=== PATIENT | male | born 1975 | race Caucasian/White ===

== ENCOUNTER → 2018-09-05 | Outpatient (CLI) | payer OTHER ==
[~2018-09-05] MED LIST: DIATRIZOATE MEGL/DIATRIZOA SOD 30 ML BTL PO ONE; FLAGYL250 MG PO; IOPAMIDOL 370 MG/ML 200 ML INFUS..BTL INJ ONE; LEVAQUIN500 MG PO; LOSARTAN-HCTZ1 EAC1 PO; METOPROLOL SUCC50 MG PO; QUETIAPINE FUM100 MG PO; SODIUM CHLORIDE 0.9% 500ML 500 ML ONE; SODIUM CHLORIDE 0.9% 50ML 50 ML ONE; ULTRACET TABLE1 EACH PO
[2018-09-05 07:51] LABS: CREATININE, SERUM 1.33 mg/dL (0.72-1.25)
--- NOTE | 2018-09-05 09:34 | Diagnostic Imaging Report ---
PROCEDURE: CT ABDOMEN AND PELVIS WITH CONTRAST TECHNIQUE: The abdomen and pelvis were scanned utilizing a multidetector helical scanner from the diaphragm to the lesser trochanter after the IV administration of 100 cc of Isovue 370 and the oral administration of Gastrografin intermixed with water. Coronal and sagittal multiplanar reformations were obtained. Low-dose technique was utilized. DLP: 447.78 mGy-cm COMPARISON: None. INDICATIONS: RIGHT LOWER QUADRANT PAIN FINDINGS: LOWER THORAX: Normal. HEPATOBILIARY: No focal hepatic lesions. No biliary ductal dilatation. There is fatty infiltration of the liver. SPLEEN: No splenomegaly. Small hypodensity within the spleen likely represents a cyst. PANCREAS: No focal masses or ductal dilatation. ADRENALS: No adrenal nodules. KIDNEYS/URETERS: No hydronephrosis, stones, or solid mass lesions. PELVIC ORGANS/BLADDER: Unremarkable. PERITONEUM / RETROPERITONEUM: No free air or fluid. LYMPH NODES: There are small left sided paraortic lymph nodes not appearing pathologic. VESSELS: There are 2 renal arteries on each side. Direct origin of the left gastric artery from the aorta. GI TRACT: There is evidence of GI malrotation with the colon and cecum on the left side of the abdomen. Small bowel loops are on the right side of the abdomen. There are scattered diverticula within the colon. No evidence of diverticulitis. The appendix is normal. BONES AND SOFT TISSUES: Rods and fusion involving L4, L5 and S1. Findings discussed with Niya miranda with Dr. Lynne at the time of interpretation. IMPRESSION: 1. No acute abnormality within the abdomen or pelvis. 2. Evidence of GI malrotation with the colon in the left side of the abdomen and small bowel in the right side of the abdomen. 3. Fatty infiltration of the liver. Emmanuel Poe D.O. Dictated by: Emmanuel Poe D.O. on 09/05/2018 at 9:42 Electronically approved by: Emmanuel Poe D.O. on 09/05/2018 at 9:42
== END ==
LOC: CT 06:50
PROVIDERS: ATTEND Family Medicine
DX: R10.11 Right upper quadrant pain (principal); R10.31 Right lower quadrant pain; R19.4 Change in bowel habit
CPT/HCPCS: 36415; 74177; 82565; 84520; 96360; J7040; Q9663; Q9967

== ENCOUNTER 2018-10-04 19:46 | Inpatient (IN) | payer OTHER ==
[~2018-10-04] VITALS: Ht 170.2 cm; Wt 85.8 kg
--- OUTSIDE RECORDS SUMMARY | 2018-10-04 19:48 | XMS REPORT ---
Author Author [facility] Address Unknown Phone Unavailable Care Team Providers Care Vegetable Loader Name Role Phone MIRIAM LYNNE Unavailable Unavailable Problems This patient has no known problems. Allergies, Adverse Reactions, Alerts This patient has no known allergies or adverse reactions. Medications This patient has no known medications. Results Test Description Test Time Test Comments Text Results Atomic Results Result Comments CT ABDOMEN/PELVIS W 2018-09-05 09:43:00 [facility] [address] [address] Patient Name: MASTER FIGUEROA MR #: [id number] : 1975 Age/Sex: 42/M Req #: [id number] [facility] Physician: Ordered by: MIRIAM LYNNE DO Report #: [id number] Location: CT Room/Bed: Procedure: [id number] CT/CT ABDOMEN/PELVIS W Exam Date: Exam Time: REPORT STATUS: Signed PROCEDURE: CT ABDOMEN AND PELVIS WITH CONTRAST TECHNIQUE: The abdomen and pelvis were scanned utilizing a multidetector helical scanner from the diaphragm to the lesser trochanter after the IV administration of 100 cc of Isovue 370 and the oral administration of Gastrografin intermixed with water. Coronal and sagittal multiplanar reformations were obtained. Low-dose technique was utilized. DLP: 447.78 mGy-cm COMPARISON: None. INDICATIONS: RIGHT LOWER QUADRANT PAIN FINDINGS: LOWER THORAX: Normal. HEPATOBILIARY: No focal hepatic lesions. No biliary ductal dilatation. There is fatty infiltration of the liver. SPLEEN: No splenomegaly. Small hypodensity within the spleen likely represents a cyst. PANCREAS: No focal masses or ductal dilatation. ADRENALS: No adrenal nodules. KIDNEYS/URETERS: No hydronephrosis, stones, or solid mass lesions. PELVIC ORGANS/BLADDER: Unremarkable. PERITONEUM / RETROPERITONEUM: No free air or fluid. LYMPH NODES: There are small left sided paraortic lymph nodes not appearing pathologic. VESSELS: There are 2 renal arteries on each side. Direct origin of the left gastric artery from the aorta. GI TRACT: There is evidence of GI malrotation with the colon and cecum on the left side of the abdomen. Small bowel loops are on the right side of the abdomen. There are scattered diverticula within the colon. No evidence of diverticulitis. T he appendix is normal. BONES AND SOFT TISSUES: Rods and fusion involving L4, L5 and S1. Findings discussed with Niya associated with Dr. Lynne at the time of interpretation. IMPRESSION: 1. No acute abnormality within the abdomen or pelvis. 2. Evidence of GI malrotation with the colon in the left side of the abdomen and small bowel in the right side of the abdomen. 3. Fatty infiltration of the liver. Orlando Poe D.O. Dictated by: Orlando Poe D.O. on 09/05/2018 at 9:42 Electronically approved by: Orlando Poe D.O. on 09/05/2018 at 9:42 Dictated By: ORLANDO POE DO 2 Transcribed By: JESÚS on 09/05/1843 COPY TO: MIRIAM LYNNE DO
[2018-10-04] MEDS ORDERED: SODIUM CHLORIDE 0.9% 1000ML 1,000 ML IV STA (20:05)
[2018-10-04] MEDS ORDERED: HYDROMORPHONE 1MG/1ML INJ IV PRN ×2 (20:15→23:30)
[2018-10-04] MEDS ORDERED: DIATRIZOATE MEGL/DIATRIZOA SOD 30 ML BTL PO ONE ×2 (20:15→20:37)
[2018-10-04] MEDS ORDERED: ONDANSETRON HCL INJ 2 MG/ML VIAL ONE (20:24)
[2018-10-04] MEDS ORDERED: SODIUM CHLORIDE 0.9% 1000ML 1,000 ML ONE (20:24)
[2018-10-04] MEDS: HYDROMORPHONE 2MG/ML 2 MG/ML ML IV PRN (20:29)
[2018-10-04] MEDS ORDERED: ONDANSETRON HCL INJ 2 MG/ML VIAL IV ONE (20:30)
[2018-10-04] MEDS ORDERED: MORPHINE SULFATE INJ 4 MG/ML INJ IV ONE (20:30)
[2018-10-04 20:36] LABS: BASOPHILS # (AUTO) 0.1 (0.0-0.1); BASOPHILS % 0.3 % (0.0-1.0); EOSINOPHILS # (AUTO) 0.1 (0.0-0.4); EOSINOPHILS % 0.8 % (0.0-6.0); HEMATOCRIT 54.1 % (38.2-49.6); HEMOGLOBIN 18.6 g/dL (14.0-18.0); LYMPHOCYTES # (AUTO) 1.9 (1.0-3.2); LYMPHOCYTES % 10.9 % (18.0-39.1); MEAN CORPUSCULAR HGB CONC 34.4 g/dL (31-35); MONOCYTES # (AUTO) 1.5 (0.2-0.8); MONOCYTES % 8.6 % (4.4-11.3); NEUTROPHILS # (AUTO) 13.8 (2.1-6.9); NEUTROPHILS % 78.9 % (38.7-80.0); PLATELET COUNT 276 x10e3/uL (140-360); RED BLOOD COUNT 5.82 x10e6/uL (4.3-5.7); RED CELL DISTRIBUTION WIDTH 13.2 % (11.7-14.4)
[2018-10-04 20:38] LABS: BILIRUBIN,URINE NEGATIVE (NEGATIVE); CLARITY,URINE CLEAR (CLEAR); COLOR,URINE YELLOW (YELLOW); KETONES,URINE NEGATIVE (NEGATIVE); LEUKOCYTE ESTERASE ,URINE NEGATIVE (NEGATIVE); NITRITE,URINE NEGATIVE (NEGATIVE); PROTEIN,URINE DIPSTICK NEGATIVE (NEGATIVE); URINE UROBILINOGEN 0.2 mg/dL (0.2 - 1)
[2018-10-04 20:42] LABS: EPITHELIAL CELLS,URINE RARE /LPF
[2018-10-04 20:52] LABS: ALBUMIN 4.5 g/dL (3.5-5.0); ALBUMIN/GLOBULIN RATIO 1.1 (0.8-2.0); ANION GAP 18.8 mmol/L (8-16); CALCIUM 11.7 mg/dL (8.4-10.2); CREATININE, SERUM 1.38 mg/dL (0.72-1.25); POTASSIUM 3.8 mmol/L (3.5-5.1)
[2018-10-04] MEDS ORDERED: IOPAMIDOL 370 MG/ML 200 ML INFUS..BTL INJ ONE (22:28)
[2018-10-04] MEDS ORDERED: SODIUM CHLORIDE 0.9% 50ML 50 ML ONE (22:28)
--- NOTE | 2018-10-04 23:04 | Diagnostic Imaging Report ---
EXAM: CT ABDOMEN/PELVIS W DATE: 10/04/2018 8:30 PM INDICATION: ^lower abd pain, h/o malrotation of gut ^Y COMPARISON: 09/05/2018 TECHNIQUE: The abdomen and pelvis were scanned using a multidetector helical scanner. Coronal and sagittal reformations were obtained. CT low dose techniques were utilized, as applicable. IV Contrast: 100 ml Isovue 300/370 FINDINGS: LOWER THORAX: No consolidations LIVER/BILIARY: No masses. No ductal dilatation. GALLBLADDER: Unremarkable SPLEEN: Stable 1.6 cm low-density splenic lesion, statistically benign. PANCREAS: Unremarkable ADRENALS: No nodules KIDNEYS: No suspicious renal masses. No hydronephrosis. GI TRACT: Incidental bowel malrotation. Appendix is normal located in the left lower abdomen (image 60). There is extensive diverticulosis with marked thickening and inflammatory changes and trace fluid about the sigmoid colon. Several intramural low density areas likely reflect developing intramural abscesses (for example image 72, 70, 69, largest 1.4 x 1.5 cm. VESSELS: Unremarkable PERITONEUM/RETROPERITONEUM: No free air or drainable fluid collection. LYMPH NODES: No lymphadenopathy REPRODUCTIVE ORGANS/BLADDER: Unremarkable SOFT TISSUES: Unremarkable BONES: Postsurgical changes status post L4-S1 fixation. Grade 1/2 anterolisthesis of L5 over S1 minimal retrolisthesis of L4 over L5, unchanged. IMPRESSION: 1. Sigmoid diverticulitis, complicated by developing small intramural abscesses. No drainable collection at this time. 3. Bowel malrotation without obstruction or volvulus. Signed by: Dr Mony Jennings MD on 10/04/2018 11:00 PM
[2018-10-04] MEDS: METRONIDAZOLE 500MG/NS 100ML 100 ML IV SCH (23:23)
[2018-10-04] MEDS ORDERED: METOPROLOL SUCC50 MG PO (23:24)
[2018-10-04] MEDS ORDERED: LOSARTAN-HCTZ1 EAC1 PO (23:24)
[2018-10-04] MEDS ORDERED: QUETIAPINE FUM100 MG PO (23:26)
[2018-10-05] VITALS (8 sets, daily range): BP systolic 102–127; BP diastolic 53–78
[2018-10-05] MEDS: LEVOFLOXACIN 500MG/D5W 100ML 100 ML IV SCH ×2 (00:40→21:52)
[2018-10-05] MEDS ORDERED: HYDROMORPHONE 2MG/ML 2 MG/ML ML ONE (00:58)
[2018-10-05] MEDS: ONDANSETRON HCL INJ 2 MG/ML VIAL IV PRN (01:00)
[2018-10-05] MEDS: HYDROMORPHONE 2MG/ML 2 MG/ML ML IV PRN ×5 (01:10→20:58)
[2018-10-05] MEDS: SODIUM CHLORIDE 0.9% 1000ML 1,000 ML IV SCH ×3 (01:40→15:21)
[2018-10-05] MEDS: QUETIAPINE FUMARATE 100 MG TAB PO PRN ×2 (01:57→22:17)
[2018-10-05] MEDS: METRONIDAZOLE 500MG/NS 100ML 100 ML IV SCH ×4 (05:28→18:44)
[2018-10-05 05:53] LABS: BASOPHILS # (AUTO) 0.1 (0.0-0.1); BASOPHILS % 0.3 % (0.0-1.0); EOSINOPHILS # (AUTO) 0.2 (0.0-0.4); EOSINOPHILS % 1.7 % (0.0-6.0); HEMATOCRIT 46.1 % (38.2-49.6); HEMOGLOBIN 15.6 g/dL (14.0-18.0); LYMPHOCYTES # (AUTO) 2.2 (1.0-3.2); LYMPHOCYTES % 14.9 % (18.0-39.1); MEAN CORPUSCULAR HEMOGLOBIN 31.8 pg (28-32); MEAN CORPUSCULAR HGB CONC 33.8 g/dL (31-35); MEAN CORPUSCULAR VOLUME 93.9 fL (81-99); MONOCYTES # (AUTO) 1.5 (0.2-0.8); MONOCYTES % 10.2 % (4.4-11.3); NEUTROPHILS # (AUTO) 10.5 (2.1-6.9); NEUTROPHILS % 72.5 % (38.7-80.0); PLATELET COUNT 197 x10e3/uL (140-360); RED BLOOD COUNT 4.91 x10e6/uL (4.3-5.7); RED CELL DISTRIBUTION WIDTH 13.2 % (11.7-14.4)
[2018-10-05 06:12] LABS: ALBUMIN 3.4 g/dL (3.5-5.0); ANION GAP 12.3 mmol/L (8-16); CALCIUM 9.6 mg/dL (8.4-10.2); CREATININE, SERUM 1.32 mg/dL (0.72-1.25); POTASSIUM 4.3 mmol/L (3.5-5.1)
[2018-10-05] MEDS: METOPROLOL SUCCINATE 50 MG TAB XL PO SCH (09:00)
[2018-10-05] MEDS: LOSARTAN POTASSIUM 100 MG TAB PO SCH (09:00)
[2018-10-06] VITALS: BP 116/62
[2018-10-06] MEDS: SODIUM CHLORIDE 0.9% 1000ML 1,000 ML IV SCH ×4 (00:26→23:21)
[2018-10-06] MEDS: METRONIDAZOLE 500MG/NS 100ML 100 ML IV SCH ×4 (05:22→18:22)
[2018-10-06] MEDS: ONDANSETRON HCL INJ 2 MG/ML VIAL IV PRN ×2 (08:03→21:37)
[2018-10-06] MEDS: HYDROMORPHONE 2MG/ML 2 MG/ML ML IV PRN ×3 (08:03→21:37)
[2018-10-06 09:21] VITALS: BP 132/62
--- NOTE | 2018-10-06 09:34 | Progress Note ---
DATE: October 06, 2018 Mr. Ellison is a 42-year-old male with history of hypertension. He came to the emergency room complaining of left lower abdominal pain. CAT scan shows diverticulitis with an intramural abscess. The patient has been evaluated by a surgeon. PHYSICAL EXAMINATION GENERAL: He is awake and alert. VITALS: Temperature is 97.8, blood pressure 116/61. HEART: Regular rate. LUNGS: Clear to auscultation. ABDOMEN: Soft. Mild tenderness in the left lower quadrant. LABS: Blood work from today is pending. White count yesterday was 14.49. Hemoglobin 15.6, hematocrit 46. Potassium 4.3, creatinine 1.32. ASSESSMENT AND PLAN 1. Sigmoid diverticulitis with intramural abscess. 2. Hypertension. 3. Leukocytosis and fever. The plan at the present time is to continue IV fluids, n.p.o., continue IV antibiotics. We are going to repeat blood work today. Consider repeating abdominal CT as per Dr. Vickers. All of this was discussed with the patient, and all questions were answered to satisfaction. Job#: [id number]
[2018-10-06 09:36] LABS: HEMATOCRIT 45.8 % (38.2-49.6); HEMOGLOBIN 15.7 g/dL (14.0-18.0); MEAN CORPUSCULAR HEMOGLOBIN 32.2 pg (28-32); MEAN CORPUSCULAR HGB CONC 34.3 g/dL (31-35); PLATELET COUNT 194 x10e3/uL (140-360); RED BLOOD COUNT 4.87 x10e6/uL (4.3-5.7); RED CELL DISTRIBUTION WIDTH 12.8 % (11.7-14.4)
[2018-10-06 11:12] VITALS: BP 132/62
[2018-10-06] MEDS: LOSARTAN POTASSIUM 100 MG TAB PO SCH (11:21)
[2018-10-06] MEDS: METOPROLOL SUCCINATE 50 MG TAB XL PO SCH (11:22)
[2018-10-06 12:00] VITALS: BP 138/67
[2018-10-06 17:37] VITALS: BP 141/81
[2018-10-06 20:00] VITALS: BP 143/75
[2018-10-06] MEDS: QUETIAPINE FUMARATE 100 MG TAB PO PRN (21:37)
[2018-10-06] MEDS: LEVOFLOXACIN 500MG/D5W 100ML 100 ML IV SCH (22:59)
[2018-10-07] VITALS: BP 119/61
[2018-10-07 04:00] VITALS: BP 117/62
[2018-10-07] MEDS: HYDROMORPHONE 2MG/ML 2 MG/ML ML IV PRN ×2 (05:00→08:55)
[2018-10-07] MEDS: ONDANSETRON HCL INJ 2 MG/ML VIAL IV PRN ×3 (05:00→14:07)
[2018-10-07] MEDS: METRONIDAZOLE 500MG/NS 100ML 100 ML IV SCH ×3 (05:07→12:05)
[2018-10-07 07:46] VITALS: BP 117/58
[2018-10-07 07:48] VITALS: BP 119/73
[2018-10-07 07:51] VITALS: BP 119/73
[2018-10-07] MEDS: METOPROLOL SUCCINATE 50 MG TAB XL PO SCH (09:00)
[2018-10-07] MEDS: LOSARTAN POTASSIUM 100 MG TAB PO SCH (09:13)
[2018-10-07 12:06] VITALS: BP 145/84
[2018-10-07] MEDS: SODIUM CHLORIDE 0.9% 1000ML 1,000 ML IV SCH (13:26)
[2018-10-07] MEDS ORDERED: LEVAQUIN500 MG PO (14:03)
[2018-10-07] MEDS ORDERED: FLAGYL250 MG PO (14:03)
[2018-10-07] MEDS ORDERED: ULTRACET TABLE1 EACH PO (14:04)
--- NOTE | 2018-10-07 17:39 | Discharge Summary ---
HISTORY AND HOSPITAL COURSE: He is a 42-year-old male with past medical history positive for hypertension. He started having abdominal pain 2 days prior to admission. He was found to have diverticulitis with microperforation. Patient was started on IV antibiotics. He is feeling better. White blood count is back to normal. Dr. Michael Vickers, surgeon, recommended to go home based on the fact that patient had improved symptoms, white blood count is normal, no fever. So, the patient is going home with oral antibiotic. PHYSICAL EXAMINATION VITAL SIGNS: Blood pressure 145/84, temperature 96.3, heart rate 63 per minute, respiratory rate 16 per minute, ox saturation 96%. HEART: Shows regular rhythm. Normal S1, S2 sounds. LUNGS: Clear bilaterally. ABDOMEN: Soft. No tension, retention, or visceromegaly. FINAL IMPRESSION 1. Acute diverticulitis with microperforation. 2. Hypertension. PLAN OF TREATMENT: Patient is going to be discharged home on Levaquin 500 mg daily for 10 days, Flagyl 500 mg p.o. q.8 hours x10 days, metoprolol 50 mg daily, Seroquel 100 mg at bedtime, and losartan 100 mg daily. Follow up with primary care physician in a week and also Dr. Wade Yi in a week. JUAN DANIEL PARRISH MD Job#: [id number] PKU
== END 2018-10-07 14:46 | disposition home or self-care (01) | DRG 392 ==
LOC: ER 19:46 → MED/SURG 23:33
PROVIDERS: ADMIT Internal Medicine; ATTEND Internal Medicine
DX: K57.20 Diverticulitis of large intestine with perforation and abscess without bleeding (principal); I10 Essential (primary) hypertension; D72.829 Elevated white blood cell count, unspecified; R50.9 Fever, unspecified
CPT/HCPCS: 36415; 74177; 80053; 81001; 82150; 83690; 85007; 85025; 85027; 96376; 99284; J1956; J2405; J7030; Q9967

== ENCOUNTER → 2019-03-07 | Day surgery (SDC) | payer OTHER ==
[~2019-03-07] MED LIST changes: -DIATRIZOATE MEGL/DIATRIZOA SOD 30 ML BTL PO ONE; +FENTANYL CITRATE/PF 100MCG/2 ML INJ ONE; +GLUCAGON FOR INJ 1 MG VIAL ONE; +HYOSCYAMINE SULFATE 0.5 MG/ML INJ ONE; -IOPAMIDOL 370 MG/ML 200 ML INFUS..BTL INJ ONE; +KETAMINE HCL INJ 50 MG/ML 10 ML VIAL ONE; +LIDOCAINE HCL 2% LOCAL INJ 5 ML SDV VIAL INJ ONE; +MIDAZOLAM HCL 2 MG/2 ML VIAL ONE; +PROPOFOL IV EMULSION 10 MG/ML 50 ML VIAL ONE; -SODIUM CHLORIDE 0.9% 500ML 500 ML ONE; -SODIUM CHLORIDE 0.9% 50ML 50 ML ONE; +TESTOSTERONE IM
--- OUTSIDE RECORDS SUMMARY | 2019-03-07 10:50 | XMS REPORT | Encounter Summary ---
Author Organization Unknown Address [address] [place] [address] Phone [phone] Care Team Providers Care Yoker Machine Operator Name Role Phone Aleks Barron MD 3 [phone] Elliot Parker MD 82 [phone] Wade Yi MD 107 [phone] Dipak Corbin MD 115 [phone] Geronimo Wayne MD 121 [phone] Mu Reveles MD 130 [phone] Reason for Visit chronic conditions Instructions 1. Diverticulitis diverticulitis: care instructions learning about diverticulosis and diverticulitis gastroenterology referral 2. Hypertensive disorder metoprolol succinate ER 50 mg tablet,extended release 24 hr losartan 100 mg-hydrochlorothiazide 25 mg tablet CMP, serum or plasma 3. Dyslipidemia lipid panel, serum high cholesterol: care instructions 4. Hypogonadism CBC w/ auto diff testosterone, total, serum 5. Lumbar radiculopathy baclofen 20 mg tablet hydrocodone 10 mg-acetaminophen 325 mg tablet 6. Insomnia quetiapine 100 mg tablet 7. Impotence of organic origin Cialis 20 mg tablet 8. Adult health examination TSH, serum or plasma HbA1c (hemoglobin A1c), blood PSA, serum or plasma vitamin B12 + folate, serum or blood vitamin D, 25-hydroxy, total, serum 9. Immunization Adacel (Tdap Adolesn/Adult)(PF)2 Lf-(2.5-5-3-5)-5 Lf/0.5 mL IM syringe 10. Body mass index 30+ - obesity body mass index: care instructions learning about healthy weight Discussion Note: None recorded. Plan of Care Patient Instructions RTC prn Reminders Provider Appointments DISTRIBUTION ENGINEER/EST CPX on or around 02/15/2020 Aleks Barron MD Lab CBC W/ Auto Diff 02/14/2019 [facility] CMP, Serum or Plasma 02/14/2019 [facility] TSH, Serum or Plasma 02/14/2019 [facility] Lipid Panel, Serum 02/14/2019 [facility] HbA1C (Hemoglobin a1C), Blood 02/14/2019 [facility] PSA, Serum or Plasma 02/14/2019 [facility] Vitamin B12 + Folate, Serum or Blood 02/14/2019 [facility] Vitamin D, 25-Hydroxy, Total, Serum 02/14/2019 [facility] Testosterone, Total, Serum 02/14/2019 [facility] Referral Gastroenterology Referral 02/14/2019 Wade Yi MD Procedures None recorded. Surgeries None recorded. Imaging None recorded. Medications Name Start Date baclofen 20 mg tablet Take 1 tablet as needed by oral route in the evening. prn spasm Cialis 20 mg tablet Take 1 tablet every day by oral route. hydrocodone 10 mg-acetaminophen 325 mg tablet Take 1 tablet every 12 hours by oral route as needed. prn moderate to severe pain losartan 100 mg-hydrochlorothiazide 25 mg tablet TAKE 1 TABLET BY MOUTH EVERY DAY metoprolol succinate ER 50 mg tablet,extended release 24 hr TAKE 1 TABLET BY MOUTH EVERY DAY quetiapine 100 mg tablet TAKE 1 TABLET BY MOUTH EVERY NIGHT AT BEDTIME prn insomnia testosterone cypionate 200 mg/mL intramuscular oil Medications Administered None recorded. Vitals Height Weight BMI Blood Pressure 5 ft 6.5 in 197.8 lbs 31.4 kg/m2 128/78 mm[Hg] Lab Results None recorded. Allergies Code Code System Name Reaction Severity Status Onset NKDA Problems Name Status Onset Date Source Body Mass Index 30+ - Obesity Active 07/07/2017 Insomnia Active 07/07/2017 Hypertensive Disorder Active 07/07/2017 Lumbar Radiculopathy Active 07/07/2017 Steatosis of Liver Active 07/13/2017 Obstructive Sleep Apnea Syndrome Active 11/02/2017 Impotence of Organic Origin Active 11/02/2017 Seasonal Allergy Active 06/12/2018 Hypogonadism Active 02/14/2019 Dyslipidemia Active 02/14/2019 Procedures Date Name Performed by 10/31/2015 Orthopedic Surgery Information not available 10/31/2014 Orthopedic Surgery Information not available 10/31/2012 Spine Surgery Procedure Information not available Vaccine List Vaccine Type Tdap 02/14/20190.5 mL Social History Smoking Status Former Smoker (1 PPD) Past Encounters 02/14/2019 Diverticulitis; Hypertensive Disorder; Dyslipidemia; Hypogonadism; Lumbar Radiculopathy; Insomnia; Impotence of Organic Origin; Adult Health Examination; Immunization; Body Mass Index 30+ - Obesity Aleks Barron MD: [id number], [address], [place] [address], Ph. History of Present Illness Note:<div>[facility] [place] - Pt had Abd Pain. No F / N / V / D. Labs, imaging done. Pt was NPO.</div>Dx: Diverticulitis<div>Rx: Abx</div><div>Dates: 10/17
<div>Rec. Colonoscopy but not yet. Has had a hard time getting appt.</div><div >Feels better.</div><div>Still blood in stool.</div><div>
</div><div>LBP - gets occ. flare-ups. No fall / trauma / strain. Pt does work on hands / knees often. </div><div>
</div><div>Fatigue - just does not feel well. Testosterone injections do not help.</div><div><div>
</div><div>hypertensive disorder - Stable. Taking meds. No problems with side effects or cost.
</div ><div>metoprolol succinate ER 50 mg tablet,extended release 24 hr
</div><div> losartan 100 mg-hydrochlorothiazide 25 mg tablet</div><div>
</div><div> polymyalgia - stable</div><div>Refer Rheum, Dr. Wayne - saw but did not need to see again</div><div>
</div><div>insomnia - Stable. Taking meds. No problems with side effects or cost.
</div><div>QUEtiapine 100 mg tablet
< /div><div>
</div><div>impotence of organic origin - same
</div><div>Cialis 20 mg tablet 1 tablet every day - expensive
</div><div>
</div><div> seasonal allergy - better
</div><div>predniSONE 20 mg tablet 2 tablets every day in the morning</div><div>
</div><div>Your labs are normal except...
< /div><div>1. Your calcium is a little high. Avoid Calcium an too much dairy products. Drink water regularly. I will monitor.
</div><div>2. Your kidney tests are a little abnormal. Drink water at least 4 times daily. I will monitor.
</div><div>3. Your red blood counts are high. This is probably from your Testosterone. Please see your Urologist for this. Pt getting blood draws.
< /div><div>4. Your testosterone is high. This is from your Testosterone. Please see your Urologist for this.</div></div></div> Review of Systems:ROS as noted in the HPI Review of Systems Comprehensive General Adult ROS, Comprehensive FACTORY MAINTENANCE TECHNICIAN ROS Reported By: Patient Constitutional: Constitutional: no fever, no night sweats, no significant weight gain, no significant weight loss, no exercise intolerance Eyes: Eyes: no dry eyes, no vision change, no irritation. Eyes: no irritation ENMT: Ears: no difficulty hearing, no ear pain. Nose: no frequent nosebleeds, no nose problems, no sinus problems. Mouth/Throat: no sore throat, no bleeding gums, no snoring, no dry mouth, no mouth ulcers, no oral abnormalities, no teeth problems Cardiovascular: Cardiovascular: no chest pain, no arm pain on exertion, no shortness of breath when walking, no shortness of breath when lying down, no palpitations, no known heart murmur, no lightheadedness, no chest pain, no palpitations Respiratory: Respiratory: no cough, no wheezing, no shortness of breath, no coughing up blood, no sleep apnea, no cough Gastrointestinal: Gastrointestinal: no abdominal pain, no nausea, no vomiting, no constipation, normal appetite, no diarrhea, not vomiting blood, no dyspepsia, no GERD, no heartburn, no dysphagia, no vomiting, no abdominal pain, no bowel movement changes, no constipation, no rectal bleeding Genitourinary: Genitourinary: no incontinence, no difficulty urinating, no hematuria, no increased frequency. Genitourinary: no abnormal bleeding, no flank pain, no trouble urinating, no rash, no lesion, no discharge, no vaginal odor, no vaginal itching Musculoskeletal: Musculoskeletal: no muscle aches, no muscle weakness, no arthralgias/joint pain, no back pain, no swelling in the extremities Integumentary: Skin: no abnormal mole, no jaundice, no rashes, no laceration, no abnormal moles Neurologic: Neurologic: no loss of consciousness, no weakness, no numbness, no seizures, no dizziness, no migraines, no headaches, no tremor Psychiatric: Psych: no depression, no sleep disturbances, feeling safe in a relationship, no alcohol abuse, no anxiety, no hallucinations, no suicidal thoughts Endocrine: Endocrine: no fatigue. Menstrual: no menstrual problems, no PMDD symptoms. Menopausal: no menopausal symptoms. Sexual: no sexual problems Hematologic/Lymphatic: Hematologic/Lymphatic no swollen glands, no bruising, no excessive bleeding Allergic/Immunologic: Allergy/Immunologic: no runny nose, no sinus pressure, no itching, no hives, no frequent sneezing ENMT: ENMT: no hearing loss Physical Exam General Adult Exam (male) Reported By: Patient Constitutional: General Appearance: healthy-appearing, well-nourished, well-developed. Level of Distress: NAD. Ambulation: ambulating normally Psychiatric: Insight: good judgement. Mental Status: active and alert, normal mood, normal affect; frustrated by fatigue, ED. Orientation: to time, to place, to person. Memory: recent memory normal, remote memory normal Head: Head: normocephalic, atraumatic Eyes: Lids and Conjunctivae: non-injected, no discharge, no pallor. Pupils: PERRLA. EOM: EOMI. Lens: clear. Sclerae: non-icteric. Vision: peripheral vision grossly intact, acuity grossly intact ENMT: Ears: no lesions on external ear, EACs clear, TMs clear, TM mobility normal. Hearing: no hearing loss. Nose: no lesions on external nose, nares patent, no septal deviation, nasal passages clear, no sinus tenderness, no nasal discharge. Lips, Teeth, and Gums: no mouth or lip ulcers, no bleeding gums, normal dentition. Oropharynx: moist mucous membranes, no erythema, no exudates, tonsils not enlarged Neck: Neck: supple, trachea midline, no masses, FROM. Lymph Nodes: no cervical LAD, no supraclavicular LAD, no axillary LAD, no inguinal LAD. Thyroid: no enlargement, non-tender, no nodules Lungs: Respiratory effort: no dyspnea. Auscultation: breath sounds normal, good air movement, CTA except as noted, no wheezing, no rales/crackles, no rhonchi Cardiovascular: Heart Auscultation: RRR, normal S1, normal S2, no murmurs, no rubs, no gallops. Neck vessels: no carotid bruits. Pulses including femoral / pedal: normal throughout Abdomen: Bowel Sounds: normal. Inspection and Palpation: soft, non-distended, no tenderness, no guarding, no rebound tenderness, no masses, no CVA tenderness. Liver: non-tender, no hepatomegaly. Spleen: non-tender, no splenomegaly Musculoskeletal:: Motor Strength and Tone: normal, normal tone. Joints, Bones, and Muscles: normal movement of all extremities, no contractures, no bony abnormalities, no malalignment, no tenderness. Extremities: no cyanosis, no edema, no varicosities Neurologic: Gait and Station: normal gait, normal station. Cranial Nerves: grossly intact. Sensation: grossly intact. Reflexes: DTRs 2+ bilaterally throughout. Coordination and Cerebellum: no tremor Skin: Inspection and palpation: no lesions, no jaundice Back: Thoracolumbar Appearance: normal curvature; No spinal tenderness to palpation
[2019-03-07 14:15] VITALS: BP 124/71
[2019-03-07 19:05] LABS: WBC,FECAL (FECAL LACTOFERRIN) NEGATIVE (NEGATIVE)
--- NOTE | 2019-03-07 19:58 | Operative Report ---
DATE OF PROCEDURE: 03/07/2019 SURGEON: Wade Yi MD PROCEDURES: Esophagogastroduodenoscopy with biopsies and a colonoscopy with polypectomy and biopsies. INDICATIONS FOR EGD: Heartburn, indigestion, bloating. INDICATIONS FOR COLONOSCOPY: Chronic diarrhea, rectal bleeding. MEDICATIONS: The patient was done under MAC, please see anesthesiologist's note. PROCEDURE IN DETAIL: With the patient in left lateral decubitus position, a flexible fiberoptic Olympus gastroscope was introduced into the esophagus under direct visualization without any difficulty. There was some patchy erythema noted in distal esophagus. The GE junction was somewhat nodular and that was biopsied. The scope was then advanced with ease into the stomach and mucosa overlying the antrum and the body revealed some patchy erythema and low-grade to moderate edema and biopsies were obtained and sent to stain for H pylori. Pylorus was of normal contour and shape, was intubated with ease and the scope was advanced all the way to the second portion of the duodenum. Biopsies were obtained from the proximal second portion and the duodenal bulb to rule out sprue. The scope was then withdrawn back into the stomach and retroflexed and mucosa overlying the fundus and the cardia appeared to be within normal limits. The scope was then straightened out, it was subsequently withdrawn. The patient tolerated procedure well. IMPRESSION: 1. Distal esophagitis, mild. 2. Gastritis, biopsied, biopsies sent to stain for H pylori. 3. Rule out sprue. PLAN: Follow up histology. Initiate Protonix 40 mg one p.o. q.a.m. a.c. PROCEDURE IN DETAIL: The patient was then turned around. After adequate lubrication of the anal canal, a flexible fiberoptic Olympus colonoscope was inserted into the rectum with ease and advanced all the way to the cecum. Mucosa overlying the cecum appeared to be within normal limits. The ileocecal valve was intubated and the scope was advanced into the terminal ileum. Biopsies were obtained. The scope was then withdrawn back into the colon and it was then withdrawn slowly and mucosa overlying the ascending and the transverse appeared to be within normal limits. Some diverticular disease was noted to involve the left colon. A large polyp was noted in the distal descending colon with a long broad-based stalk and that was removed per snare electrocautery and polypectomy site was hemoclipped x3. The mucosa overlying the left colon and the rectum revealed some patchy mild inflammatory changes and multiple random biopsies were obtained. The scope was then retroflexed into the distal rectum and small internal hemorrhoids were noted, none of which was actively bleeding. The scope was then straightened out, it was subsequently withdrawn. The patient tolerated procedure well. IMPRESSION: 1. Large polyp with long wide-based stalk snared and site hemoclipped x3. 2. Diverticulosis. 3. Mild patchy left-sided colitis. 4. Internal hemorrhoids, none actively bleeding. PLAN: Follow up histology. Follow up stool studies. Initiate Bentyl 10 mg one p.o. t.i.d. VSL#3 one p.o. daily. Check CRP, sedimentation rate, and IBD panel. Timing of followup colonoscopy pending pathology report. Wade Yi MD [facility] [place] /[id number] cc: Aleks Barron
[2019-03-08 13:40] LABS: C DIFFICILE TOXIN A&B AMP PROB NEGATIVE (NEGATIVE)
== END | disposition home or self-care (01) ==
LOC: OR 10:48
PROVIDERS: ATTEND Internal Medicine Gastroenterology
DX: K51.50 Left sided colitis without complications (principal); D12.4 Benign neoplasm of descending colon; K29.70 Gastritis, unspecified, without bleeding; K21.0 Gastro-esophageal reflux disease with esophagitis; K22.8 Other specified diseases of esophagus; K57.30 Diverticulosis of large intestine without perforation or abscess without bleeding; K64.8 Other hemorrhoids; I10 Essential (primary) hypertension; R00.1 Bradycardia, unspecified; G47.30 Sleep apnea, unspecified; F17.210 Nicotine dependence, cigarettes, uncomplicated; Z01.810 Encounter for preprocedural cardiovascular examination; Z68.31 Body mass index [BMI] 31.0-31.9, adult
CPT/HCPCS: 43239; 45380; 45385; 83630; 83993; 87045; 87177; 87328; 87493; 93005; J1610; J1980; J2001; J2250; J2704; 45378

== ENCOUNTER → 2020-07-10 | Day surgery (SDC) | payer BC, OTHER ==
[~2020-07-10] MED LIST changes: +DICYCLOMINE HCL20 MG PO; -HYOSCYAMINE SULFATE 0.5 MG/ML INJ ONE; +PANTOPRAZOLE SO40 MG PO; +PROPOFOL IV EMULSION 10 MG/ML 20 ML VIAL ONE; -PROPOFOL IV EMULSION 10 MG/ML 50 ML VIAL ONE; +TYLENOL # 31 EA PO; +VANCOCIN HCL250 MG PO
[2020-07-10 15:35] VITALS: BP 164/95
--- NOTE | 2020-07-10 19:47 | Operative Report ---
DATE OF PROCEDURE: 07/10/2020 SURGEON: Wade Yi MD PROCEDURES: EGD with biopsies, and a colonoscopy with polypectomy and biopsies. INDICATIONS FOR EGD: Dyspepsia. INDICATIONS FOR COLONOSCOPY: Rectal bleeding, history of large polyp. MEDICATIONS: The patient was done under MAC, please see anesthesiologist's note. PROCEDURE IN DETAIL: With the patient in left lateral decubitus position, a flexible fiberoptic Olympus gastroscope was introduced into the esophagus under direct visualization without any difficulty. There was some patchy erythema noted in distal esophagus. The scope was then advanced with ease into the stomach, mucosa overlying the antrum and the body revealed some diffuse erythema and moderate edema, and biopsies were obtained, and sent to stain for H. pylori. Pylorus was of normal contour and shape, it was intubated with ease and the scope was advanced all the way to the second portion of the duodenum. The scope was then withdrawn slowly, mucosa overlying the proximal second portion and the duodenal bulb appeared to be within normal limits. The scope was then withdrawn back into the stomach and retroflexed, mucosa overlying the fundus and cardia appeared to be within normal limits. The scope was then straightened out, it was subsequently withdrawn. The patient tolerated the procedure well. IMPRESSION: 1. Distal esophagitis, mild. 2. Gastritis, biopsied, biopsies sent to stain for H. pylori. PLAN: 1. Follow up histology. 2. Continue Protonix 40 mg one p.o. a.c. b.i.d. DESCRIPTION OF PROCEDURE: The patient was then turned around after adequate lubrication of the anal canal, a flexible fiberoptic Olympus colonoscope was inserted into the rectum with ease and advanced all the way to the cecum. Prep was poor primarily in the cecum and the ascending colon. The scope was then withdrawn slowly and whatever was visualized, mucosa overlying the cecum appeared to be within normal limits. There were some scattered diverticular disease noted throughout the colon. Some inflammatory changes were noted in the sigmoid colon and biopsies were obtained. One in approximately 8 mm sessile polyp was removed per hot snare polypectomy from the sigmoid colon. The rectum appeared to be within normal limits. The scope was then retroflexed into the distal rectum and small internal hemorrhoids were noted, none of which was actively bleeding. The scope was then straightened out, it was subsequently withdrawn. The patient tolerated the procedure well. IMPRESSION: 1. Suboptimal prep, primary cecum and proximal ascending colon. 2. Diverticulosis associated colitis. 3. Sigmoid colon polyp, hot snared. 4. Internal hemorrhoids, none actively bleeding. PLAN: 1. Follow up histology. 2. Initiate high-fiber, low-fat diet. 3. Initiate high-fiber supplement. MD ELICEO Lamb/MODL /[id number]
== END | disposition home or self-care (01) ==
LOC: OR 13:50
PROVIDERS: ATTEND Internal Medicine Gastroenterology
DX: K52.9 Noninfective gastroenteritis and colitis, unspecified (principal); Z86.010 Personal history of colon polyps; K29.70 Gastritis, unspecified, without bleeding; K57.30 Diverticulosis of large intestine without perforation or abscess without bleeding; K64.8 Other hemorrhoids; K20.9 Esophagitis, unspecified; K31.89 Other diseases of stomach and duodenum; G47.33 Obstructive sleep apnea (adult) (pediatric); I10 Essential (primary) hypertension; K59.09 Other constipation; Z01.810 Encounter for preprocedural cardiovascular examination; Z01.812 Encounter for preprocedural laboratory examination; Z11.59 Encounter for screening for other viral diseases
CPT/HCPCS: 43239; 45380; 45385; 93005; J1610; J2001; J2704; U0002; J2250; J3010

== ENCOUNTER 2020-10-10 06:26 | Inpatient (IN) | payer BC ==
[~2020-10-10] VITALS: Ht 152.4 cm; Wt 91.6 kg
[~2020-10-10 06:26] MED LIST changes: -FENTANYL CITRATE/PF 100MCG/2 ML INJ ONE; -GLUCAGON FOR INJ 1 MG VIAL ONE; -KETAMINE HCL INJ 50 MG/ML 10 ML VIAL ONE; -LIDOCAINE HCL 2% LOCAL INJ 5 ML SDV VIAL INJ ONE; -MIDAZOLAM HCL 2 MG/2 ML VIAL ONE; -PROPOFOL IV EMULSION 10 MG/ML 20 ML VIAL ONE
[2020-10-10] MEDS ORDERED: PIPER-TAZ 3.375 GM 50 ML IV STA (06:28)
[2020-10-10] MEDS ORDERED: ONDANSETRON HCL INJ 2MG/ML 2ML 2 MG/ML VIAL IV STA (06:28)
[2020-10-10] MEDS ORDERED: SODIUM CHLORIDE 0.9% 1000ML 1,000 ML IV SCH (06:30)
[2020-10-10] MEDS ORDERED: MORPHINE SULFATE INJ 4 MG/ML INJ 1ML IV PRN ×2 (06:30→09:45)
[2020-10-10] MEDS ORDERED: MORPHINE SULFATE 2 MG/ML SYR 1ML IV STA (06:49)
[2020-10-10] MEDS ORDERED: DIATRIZOATE MEGL/DIATRIZOA SOD 30 ML BTL PO ONE (06:51)
[2020-10-10 06:56] LABS: BASOPHILS % 0.2 % (0.0-1.0); EOSINOPHILS # (AUTO) 0.1 (0.0-0.4); EOSINOPHILS % 0.4 % (0.0-6.0); HEMATOCRIT 39.3 % (38.2-49.6); HEMOGLOBIN 11.1 g/dL (14.0-18.0); LYMPHOCYTES # (AUTO) 1.5 (1.0-3.2); LYMPHOCYTES % 12.5 % (18.0-39.1); MEAN CORPUSCULAR HEMOGLOBIN 18.5 pg (28-32); MEAN CORPUSCULAR HGB CONC 28.2 g/dL (31-35); MEAN CORPUSCULAR VOLUME 65.6 fL (81-99); MONOCYTES # (AUTO) 0.9 (0.2-0.8); MONOCYTES % 7.7 % (4.4-11.3); NEUTROPHILS # (AUTO) 9.6 (2.1-6.9); NEUTROPHILS % 78.7 % (38.7-80.0); PLATELET COUNT 365 x10e3/uL (140-360); RED BLOOD COUNT 5.99 x10e6/uL (4.3-5.7); RED CELL DISTRIBUTION WIDTH 22.6 % (11.7-14.4)
[2020-10-10 07:17] LABS: ALANINE AMINOTRANSFERASE 24 IU/L (0-55); ALBUMIN 4.5 g/dL (3.5-5.0); ALBUMIN/GLOBULIN RATIO 1.1 (0.8-2.0); ALKALINE PHOSPHATASE 65 IU/L (40-150); ANION GAP 11.8 mmol/L (8-16); BLOOD UREA NITROGEN 16 mg/dL (7-26); BUN/CREATININE RATIO 11 (6-25); CALCIUM 9.4 mg/dL (8.4-10.2); CARBON DIOXIDE 26 mmol/L (22-29); CHLORIDE 100 mmol/L (98-107); CREATINE KINASE 114 IU/L (30-200); CREATININE, SERUM 1.51 mg/dL (0.72-1.25); EST GLOMERULAR FILTRATION RATE 51 ML/MIN (60-); GLUCOSE 146 mg/dL (74-118); POTASSIUM 3.8 mmol/L (3.5-5.1); SODIUM 134 mmol/L (136-145)
[2020-10-10 07:18] LABS: CLARITY,URINE CLEAR (CLEAR); COLOR,URINE AMBER (YELLOW); KETONES,URINE TRACE (NEGATIVE); LEUKOCYTE ESTERASE ,URINE NEGATIVE (NEGATIVE); NITRITE,URINE NEGATIVE (NEGATIVE); PROTEIN,URINE DIPSTICK 2+ (NEGATIVE)
[2020-10-10 07:19] LABS: AMPHETAMINES SCREEN,URINE NEGATIVE (NEGATIVE); BENZODIAZEPINES SCREEN,URINE NEGATIVE (NEGATIVE); PHENCYCLIDINE SCREEN,URINE NEGATIVE (NEGATIVE)
[2020-10-10 07:20] LABS: URINE UROBILINOGEN 1 mg/dL (0.2 - 1)
[2020-10-10 07:26] LABS: BACTERIA,URINE RARE /HPF; EPITHELIAL CELLS,URINE RARE /LPF; RBC,URINE 0-5 /HPF (0-5); WBC,URINE (MAN) 0-5 /HPF (0-5)
[2020-10-10] MEDS ORDERED: SODIUM CHLORIDE 0.9% 50ML 50 ML ONE (07:35)
[2020-10-10] MEDS ORDERED: IOPAMIDOL 370 MG/ML 200 ML INFUS..BTL INJ ONE (07:35)
[2020-10-10] MEDS: ONDANSETRON HCL INJ 2MG/ML 2ML 2 MG/ML VIAL IV PRN ×2 (10:46→20:28)
[2020-10-10] MEDS: SODIUM CHLORIDE 0.9% 1000ML 1,000 ML IV SCH ×2 (10:46→16:33)
[2020-10-10 10:50] VITALS: BP 122/65
[2020-10-10 11:21] LABS: HYPOCHROMASIA MODERATE
[2020-10-10 11:22] LABS: ELLIPTOCYTE, RBC SLIGHT; RBC MORPHOLOGY COMMENT ABNORMAL
[2020-10-10 11:23] LABS: MICROCYTOSIS SLIGHT; PLATELET ESTIMATE ADEQUATE; PLATELET MORPHOLOGY COMMENT NORMAL
[2020-10-10] MEDS: HYDROMORPHONE 1MG/1ML INJ IV PRN ×4 (14:30→23:59)
[2020-10-10 15:52] VITALS: BP_SYST 118; BP_SYST 120; BP_DIAS 61; BP_DIAS 73
[2020-10-10] MEDS: PIPER-TAZ 3.375 GM 50 ML IV SCH (16:33)
[2020-10-10 16:36] LABS: CHOL/HDL RATIO 4.5 (3.9-4.7)
[2020-10-10 16:45] VITALS: BP 120/61
[2020-10-10 17:33] VITALS: BP 120/61
[2020-10-10 20:00] VITALS: BP 129/64
[2020-10-10 21:00] VITALS: BP 129/64
[2020-10-11] VITALS (8 sets, daily range): BP systolic 119–137; BP diastolic 58–74
[2020-10-11] MEDS: PIPER-TAZ 3.375 GM 50 ML IV SCH (00:55)
[2020-10-11] MEDS: SODIUM CHLORIDE 0.9% 1000ML 1,000 ML IV SCH ×4 (01:01→22:24)
[2020-10-11] MEDS: HYDROMORPHONE 1MG/1ML INJ IV PRN ×7 (03:12→21:34)
[2020-10-11] MEDS ORDERED: MELATONIN 5 MG TABLET PO PRN (05:45)
[2020-10-11] MEDS: METRONIDAZOLE 500MG/NS 100ML 100 ML IV SCH ×3 (05:57→18:00)
[2020-10-11 06:21] LABS: BASOPHILS % 0.2 % (0.0-1.0); EOSINOPHILS % 0.2 % (0.0-6.0); HEMATOCRIT 33.1 % (38.2-49.6); HEMOGLOBIN 9.5 g/dL (14.0-18.0); LYMPHOCYTES # (AUTO) 1.2 (1.0-3.2); LYMPHOCYTES % 9.2 % (18.0-39.1); MEAN CORPUSCULAR HEMOGLOBIN 19.3 pg (28-32); MEAN CORPUSCULAR HGB CONC 28.7 g/dL (31-35); MEAN CORPUSCULAR VOLUME 67.1 fL (81-99); MONOCYTES # (AUTO) 0.9 (0.2-0.8); MONOCYTES % 6.9 % (4.4-11.3); NEUTROPHILS # (AUTO) 10.9 (2.1-6.9); PLATELET COUNT 268 x10e3/uL (140-360); RED BLOOD COUNT 4.93 x10e6/uL (4.3-5.7); RED CELL DISTRIBUTION WIDTH 22.5 % (11.7-14.4)
[2020-10-11] MEDS ORDERED: MELATONIN 5 MG TABLET PO ONE (06:30)
[2020-10-11 06:49] LABS: ALBUMIN 3.4 g/dL (3.5-5.0); ANION GAP 11.3 mmol/L (8-16); CALCIUM 8.4 mg/dL (8.4-10.2); CREATININE, SERUM 1.58 mg/dL (0.72-1.25); POTASSIUM 4.3 mmol/L (3.5-5.1)
[2020-10-11] MEDS: PIPERACILLIN/TAZO 4.5 GM 100 ML IV SCH ×3 (07:06→21:58)
[2020-10-11 07:30] LABS: FERRITIN 44.25 ng/mL (21.81-274.66)
[2020-10-11] MEDS: ONDANSETRON HCL INJ 2MG/ML 2ML 2 MG/ML VIAL IV PRN ×3 (08:54→21:30)
[2020-10-11] MEDS: PANTOPRAZOLE 40 MG 10ML VIAL IV SCH (09:00)
[2020-10-11] MEDS: CYANOCOBALAMIN INJ 1,000 MCG/ML VIAL IM SCH (09:00)
[2020-10-11] MEDS: SODIUM FERRIC GLUCONATE COMPLX 125 MG in SODIUM CHLORIDE 0.9% 100 ML 100 ML IV SCH (09:30)
[2020-10-11] MEDS: QUETIAPINE FUMARATE 100 MG TAB PO PRN (22:05)
[2020-10-12] VITALS (8 sets, daily range): BP systolic 124–145; BP diastolic 61–83
[2020-10-12] MEDS: HYDROMORPHONE 1MG/1ML INJ IV PRN ×8 (00:44→21:30)
[2020-10-12] MEDS: ONDANSETRON HCL INJ 2MG/ML 2ML 2 MG/ML VIAL IV PRN ×4 (03:59→18:30)
[2020-10-12] MEDS: SODIUM CHLORIDE 0.9% 1000ML 1,000 ML IV SCH ×3 (05:04→17:13)
[2020-10-12 05:33] LABS: BASOPHILS % 0.2 % (0.0-1.0); EOSINOPHILS % 0.1 % (0.0-6.0); HEMOGLOBIN 8.5 g/dL (14.0-18.0); LYMPHOCYTES # (AUTO) 0.9 (1.0-3.2); LYMPHOCYTES % 5.7 % (18.0-39.1); MEAN CORPUSCULAR HEMOGLOBIN 18.8 pg (28-32); MEAN CORPUSCULAR HGB CONC 28.3 g/dL (31-35); MEAN CORPUSCULAR VOLUME 66.2 fL (81-99); MONOCYTES # (AUTO) 1.1 (0.2-0.8); MONOCYTES % 7.6 % (4.4-11.3); NEUTROPHILS # (AUTO) 12.7 (2.1-6.9); NEUTROPHILS % 85.4 % (38.7-80.0); PLATELET COUNT 282 x10e3/uL (140-360); RED BLOOD COUNT 4.53 x10e6/uL (4.3-5.7); RED CELL DISTRIBUTION WIDTH 22.5 % (11.7-14.4)
[2020-10-12 05:51] LABS: ALBUMIN 3.1 g/dL (3.5-5.0); ALBUMIN/GLOBULIN RATIO 0.8 (0.8-2.0); ANION GAP 13.2 mmol/L (8-16); CALCIUM 8.7 mg/dL (8.4-10.2); CREATININE, SERUM 1.55 mg/dL (0.72-1.25); POTASSIUM 4.2 mmol/L (3.5-5.1)
[2020-10-12] MEDS: METRONIDAZOLE 500MG/NS 100ML 100 ML IV SCH ×4 (06:00→17:13)
[2020-10-12] MEDS: PIPERACILLIN/TAZO 4.5 GM 100 ML IV SCH ×3 (06:53→22:08)
[2020-10-12] MEDS: PANTOPRAZOLE 40 MG 10ML VIAL IV SCH (08:48)
[2020-10-12] MEDS: CYANOCOBALAMIN INJ 1,000 MCG/ML VIAL IM SCH (08:48)
[2020-10-12] MEDS: SODIUM FERRIC GLUCONATE COMPLX 125 MG in SODIUM CHLORIDE 0.9% 100 ML 100 ML IV SCH (09:00)
[2020-10-12] MEDS ORDERED: DIPHENOXYLATE/ATROPINE TAB PO NR (16:00)
[2020-10-12] MEDS: QUETIAPINE FUMARATE 100 MG TAB PO PRN (21:30)
[2020-10-13] VITALS (8 sets, daily range): BP systolic 142–157; BP diastolic 82–96
[2020-10-13] MEDS: HYDROMORPHONE 1MG/1ML INJ IV PRN ×6 (00:54→21:05)
[2020-10-13] MEDS: ONDANSETRON HCL INJ 2MG/ML 2ML 2 MG/ML VIAL IV PRN (00:54)
[2020-10-13] MEDS: SODIUM CHLORIDE 0.9% 1000ML 1,000 ML IV SCH ×4 (01:04→21:04)
[2020-10-13] MEDS: METRONIDAZOLE 500MG/NS 100ML 100 ML IV SCH ×4 (05:12→19:19)
[2020-10-13 05:42] LABS: BASOPHILS % 0.2 % (0.0-1.0); EOSINOPHILS # (AUTO) 0.2 (0.0-0.4); EOSINOPHILS % 1.4 % (0.0-6.0); HEMATOCRIT 29.7 % (38.2-49.6); HEMOGLOBIN 8.5 g/dL (14.0-18.0); LYMPHOCYTES # (AUTO) 0.9 (1.0-3.2); LYMPHOCYTES % 7.2 % (18.0-39.1); MEAN CORPUSCULAR HEMOGLOBIN 18.9 pg (28-32); MEAN CORPUSCULAR HGB CONC 28.6 g/dL (31-35); MEAN CORPUSCULAR VOLUME 66.1 fL (81-99); MONOCYTES % 8.3 % (4.4-11.3); NEUTROPHILS # (AUTO) 9.9 (2.1-6.9); NEUTROPHILS % 81.9 % (38.7-80.0); PLATELET COUNT 301 x10e3/uL (140-360); RED BLOOD COUNT 4.49 x10e6/uL (4.3-5.7); RED CELL DISTRIBUTION WIDTH 22.2 % (11.7-14.4)
[2020-10-13 06:10] LABS: ALANINE AMINOTRANSFERASE 12 IU/L (0-55); ALBUMIN 2.9 g/dL (3.5-5.0); ALBUMIN/GLOBULIN RATIO 0.8 (0.8-2.0); ALKALINE PHOSPHATASE 37 IU/L (40-150); ANION GAP 11.3 mmol/L (8-16); BLOOD UREA NITROGEN 10 mg/dL (7-26); BUN/CREATININE RATIO 8 (6-25); CALCIUM 8.3 mg/dL (8.4-10.2); CARBON DIOXIDE 21 mmol/L (22-29); CHLORIDE 109 mmol/L (98-107); CREATININE, SERUM 1.25 mg/dL (0.72-1.25); EST GLOMERULAR FILTRATION RATE > 60 ML/MIN (60-); GLUCOSE 103 mg/dL (74-118); POTASSIUM 3.3 mmol/L (3.5-5.1); SODIUM 138 mmol/L (136-145)
[2020-10-13] MEDS: PIPERACILLIN/TAZO 4.5 GM 100 ML IV SCH ×3 (06:18→22:31)
[2020-10-13] MEDS: PANTOPRAZOLE 40 MG 10ML VIAL IV SCH (09:14)
[2020-10-13] MEDS: CYANOCOBALAMIN INJ 1,000 MCG/ML VIAL IM SCH (09:14)
[2020-10-13] MEDS: SODIUM FERRIC GLUCONATE COMPLX 125 MG in SODIUM CHLORIDE 0.9% 100 ML 100 ML IV SCH (10:07)
[2020-10-13 10:44] LABS: MICROCYTOSIS SLIGHT
[2020-10-13 10:45] LABS: HYPOCHROMASIA SLIGHT; PLATELET ESTIMATE ADEQUATE; PLATELET MORPHOLOGY COMMENT NORMAL; RBC MORPHOLOGY COMMENT NORMAL
[2020-10-13] MEDS ORDERED: MAGNESIUM HYDROXIDE 30 ML UDC PO ONE (14:00)
[2020-10-13] MEDS ORDERED: POTASSIUM CHLORIDE 20MEQ/100ML 100 ML IV ONE (15:15)
[2020-10-13] MEDS ORDERED: SODIUM CHLORIDE 0.9% 250ML 250 ML ONE (16:41)
[2020-10-14] VITALS (9 sets, daily range): BP systolic 152–173; BP diastolic 83–104
[2020-10-14] MEDS: HYDROMORPHONE 1MG/1ML INJ IV PRN ×6 (00:05→20:29)
[2020-10-14] MEDS: METRONIDAZOLE 500MG/NS 100ML 100 ML IV SCH ×5 (00:19→23:57)
[2020-10-14] MEDS: QUETIAPINE FUMARATE 100 MG TAB PO PRN ×2 (00:52→23:57)
[2020-10-14] MEDS ORDERED: MAGNESIUM HYDROXIDE 30 ML UDC PO ONE ×2 (01:00)
[2020-10-14] MEDS: SODIUM CHLORIDE 0.9% 1000ML 1,000 ML IV SCH ×3 (03:53→17:04)
[2020-10-14] MEDS: ONDANSETRON HCL INJ 2MG/ML 2ML 2 MG/ML VIAL IV PRN ×4 (04:51→20:31)
[2020-10-14] MEDS: PIPERACILLIN/TAZO 4.5 GM 100 ML IV SCH ×3 (05:08→22:09)
[2020-10-14 07:42] LABS: BASOPHILS % 0.2 % (0.0-1.0); EOSINOPHILS # (AUTO) 0.1 (0.0-0.4); EOSINOPHILS % 1.2 % (0.0-6.0); HEMATOCRIT 30.5 % (38.2-49.6); HEMOGLOBIN 8.5 g/dL (14.0-18.0); LYMPHOCYTES # (AUTO) 0.8 (1.0-3.2); LYMPHOCYTES % 7.9 % (18.0-39.1); MEAN CORPUSCULAR HEMOGLOBIN 18.5 pg (28-32); MEAN CORPUSCULAR HGB CONC 27.9 g/dL (31-35); MEAN CORPUSCULAR VOLUME 66.4 fL (81-99); MONOCYTES % 10.2 % (4.4-11.3); NEUTROPHILS % 79.9 % (38.7-80.0); PLATELET COUNT 353 x10e3/uL (140-360); RED BLOOD COUNT 4.59 x10e6/uL (4.3-5.7); RED CELL DISTRIBUTION WIDTH 22.7 % (11.7-14.4)
[2020-10-14 08:06] LABS: ANION GAP 17.2 mmol/L (8-16); CALCIUM 8.6 mg/dL (8.4-10.2); CARBON DIOXIDE 22 mmol/L (22-29); CHLORIDE 106 mmol/L (98-107); CREATININE, SERUM 1.21 mg/dL (0.72-1.25); GLUCOSE 119 mg/dL (74-118); POTASSIUM 3.2 mmol/L (3.5-5.1); SODIUM 142 mmol/L (136-145)
[2020-10-14 08:21] LABS: BLOOD UREA NITROGEN 10 mg/dL (7-26); BUN/CREATININE RATIO 8 (6-25)
[2020-10-14 08:22] LABS: EST GLOMERULAR FILTRATION RATE > 60 ML/MIN (60-)
[2020-10-14 08:39] LABS: MAGNESIUM 2.2 MG/DL (1.3-2.1); PHOSPHORUS 1.6 MG/DL (2.3-4.7)
[2020-10-14] MEDS ORDERED: SODIUM CHLORIDE 0.9% 50ML 50 ML ONE (08:39)
[2020-10-14] MEDS ORDERED: IOPAMIDOL 370 MG/ML 200 ML INFUS..BTL INJ ONE (08:40)
[2020-10-14] MEDS: PANTOPRAZOLE 40 MG 10ML VIAL IV SCH (09:51)
[2020-10-14] MEDS: SODIUM FERRIC GLUCONATE COMPLX 125 MG in SODIUM CHLORIDE 0.9% 100 ML 100 ML IV SCH (10:01)
[2020-10-14] MEDS ORDERED: CLONIDINE HCL 0.1 MG/24 HR 1 EA PATCH TOP SCH (14:45)
[2020-10-14] MEDS: CYCLOBENZAPRINE HCL 10 MG TAB PO SCH ×2 (15:00→21:00)
[2020-10-14] MEDS: METOPROLOL TARTRATE INJ 1 MG/ML VIAL IV SCH ×2 (17:55→22:06)
[2020-10-14] MEDS: METOCLOPRAMIDE HCL 10 MG/2ML VIAL IV SCH (21:55)
[2020-10-15] VITALS (7 sets, daily range): BP systolic 140–154; BP diastolic 76–91
[2020-10-15] MEDS: ONDANSETRON HCL INJ 2MG/ML 2ML 2 MG/ML VIAL IV PRN ×2 (00:38→10:25)
[2020-10-15] MEDS: HYDROMORPHONE 1MG/1ML INJ IV PRN ×4 (00:38→23:04)
[2020-10-15] MEDS: SODIUM CHLORIDE 0.9% 1000ML 1,000 ML IV SCH ×3 (01:40→18:26)
[2020-10-15] MEDS ORDERED: POTASSIUM CHLORIDE 20MEQ/100ML 200 ML IV ONE (02:15)
[2020-10-15] MEDS: LEVOFLOXACIN 500MG/D5W 100ML 100 ML IV SCH (02:40)
[2020-10-15] MEDS: METOPROLOL TARTRATE INJ 1 MG/ML VIAL IV SCH ×6 (02:48→21:13)
[2020-10-15] MEDS: METOCLOPRAMIDE HCL 10 MG/2ML VIAL IV SCH ×4 (04:59→23:22)
[2020-10-15 05:24] LABS: LIPASE 87 U/L (8-78)
[2020-10-15 05:35] LABS: AMYLASE 71 U/L (25-125)
[2020-10-15] MEDS: METRONIDAZOLE 500MG/NS 100ML 100 ML IV SCH ×4 (06:50→23:22)
[2020-10-15] MEDS: SODIUM FERRIC GLUCONATE COMPLX 125 MG in SODIUM CHLORIDE 0.9% 100 ML 100 ML IV SCH (08:50)
[2020-10-15] MEDS: PANTOPRAZOLE 40 MG 10ML VIAL IV SCH (08:50)
[2020-10-15] MEDS: CYCLOBENZAPRINE HCL 10 MG TAB PO SCH ×3 (08:50→21:22)
[2020-10-15] MEDS: QUETIAPINE FUMARATE 100 MG TAB PO PRN (23:22)
[2020-10-16] VITALS (7 sets, daily range): BP systolic 149–166; BP diastolic 75–95
[2020-10-16] MEDS ORDERED: CYANOCOBALAMIN INJ 1,000 MCG/ML VIAL IM ONE
[2020-10-16] MEDS: LEVOFLOXACIN 500MG/D5W 100ML 100 ML IV SCH (01:28)
[2020-10-16] MEDS: METOPROLOL TARTRATE INJ 1 MG/ML VIAL IV SCH ×6 (01:31→21:06)
[2020-10-16] MEDS: SODIUM CHLORIDE 0.9% 1000ML 1,000 ML IV SCH ×2 (04:37→19:57)
[2020-10-16] MEDS: HYDROMORPHONE 1MG/1ML INJ IV PRN ×4 (04:45→22:08)
[2020-10-16 05:11] LABS: BASOPHILS % 0.4 % (0.0-1.0); EOSINOPHILS # (AUTO) 0.2 (0.0-0.4); EOSINOPHILS % 1.7 % (0.0-6.0); HEMATOCRIT 28.7 % (38.2-49.6); HEMOGLOBIN 8.1 g/dL (14.0-18.0); LYMPHOCYTES # (AUTO) 1.3 (1.0-3.2); LYMPHOCYTES % 12.2 % (18.0-39.1); MEAN CORPUSCULAR HEMOGLOBIN 18.8 pg (28-32); MEAN CORPUSCULAR HGB CONC 28.2 g/dL (31-35); MEAN CORPUSCULAR VOLUME 66.7 fL (81-99); MONOCYTES % 9.1 % (4.4-11.3); NEUTROPHILS # (AUTO) 7.9 (2.1-6.9); PLATELET COUNT 374 x10e3/uL (140-360)
[2020-10-16 05:25] LABS: ALANINE AMINOTRANSFERASE 14 IU/L (0-55); ALBUMIN/GLOBULIN RATIO 0.9 (0.8-2.0); ALKALINE PHOSPHATASE 37 IU/L (40-150); ANION GAP 13.4 mmol/L (8-16); BLOOD UREA NITROGEN 18 mg/dL (7-26); BUN/CREATININE RATIO 16 (6-25); CALCIUM 7.9 mg/dL (8.4-10.2); CARBON DIOXIDE 17 mmol/L (22-29); CHLORIDE 112 mmol/L (98-107); CREATININE, SERUM 1.11 mg/dL (0.72-1.25); EST GLOMERULAR FILTRATION RATE > 60 ML/MIN (60-); GLUCOSE 88 mg/dL (74-118); POTASSIUM 3.4 mmol/L (3.5-5.1); SODIUM 139 mmol/L (136-145)
[2020-10-16] MEDS: METRONIDAZOLE 500MG/NS 100ML 100 ML IV SCH ×3 (05:36→17:35)
[2020-10-16] MEDS: METOCLOPRAMIDE HCL 10 MG/2ML VIAL IV SCH ×4 (05:36→22:57)
[2020-10-16] MEDS: CYANOCOBALAMIN INJ 1,000 MCG/ML VIAL IM SCH (07:05)
[2020-10-16] MEDS: PANTOPRAZOLE 40 MG 10ML VIAL IV SCH (08:44)
[2020-10-16] MEDS: CYCLOBENZAPRINE HCL 10 MG TAB PO SCH ×3 (08:45→20:08)
[2020-10-16] MEDS: SODIUM FERRIC GLUCONATE COMPLX 125 MG in SODIUM CHLORIDE 0.9% 100 ML 100 ML IV SCH (08:45)
[2020-10-16 09:49] LABS: HYPOCHROMASIA SLIGHT; MICROCYTOSIS SLIGHT
[2020-10-16 09:50] LABS: ANISOCYTOSIS MARKED; PLATELET ESTIMATE SLIGHTLY INCREASED; POLYCHROMASIA FEW; RBC MORPHOLOGY COMMENT ABNORMAL
[2020-10-16 09:51] LABS: PLATELET MORPHOLOGY COMMENT FEW LARGE
[2020-10-16] MEDS ORDERED: DIPHENOXYLATE/ATROPINE TAB PO ONE ×2 (11:30→20:00)
[2020-10-16] MEDS: ONDANSETRON HCL INJ 2MG/ML 2ML 2 MG/ML VIAL IV PRN ×2 (12:40→18:05)
[2020-10-16] MEDS ORDERED: POTASSIUM CHLORIDE 20MEQ/100ML 200 ML IV ONE (14:30)
[2020-10-16] MEDS ORDERED: CEPACOL SORE THROAT LOZENGES PO PRN (18:15)
[2020-10-16] MEDS: QUETIAPINE FUMARATE 100 MG TAB PO PRN (22:57)
[2020-10-17] VITALS (8 sets, daily range): BP systolic 142–166; BP diastolic 80–92
[2020-10-17] MEDS: METRONIDAZOLE 500MG/NS 100ML 100 ML IV SCH ×4 (00:04→17:33)
[2020-10-17] MEDS: LEVOFLOXACIN 500MG/D5W 100ML 100 ML IV SCH (02:50)
[2020-10-17] MEDS: METOPROLOL TARTRATE INJ 1 MG/ML VIAL IV SCH ×6 (02:50→22:00)
[2020-10-17] MEDS: HYDROMORPHONE 1MG/1ML INJ IV PRN ×3 (04:27→20:25)
[2020-10-17 05:53] LABS: BASOPHILS % 0.3 % (0.0-1.0); EOSINOPHILS # (AUTO) 0.2 (0.0-0.4); EOSINOPHILS % 2.1 % (0.0-6.0); HEMATOCRIT 29.1 % (38.2-49.6); HEMOGLOBIN 8.2 g/dL (14.0-18.0); LYMPHOCYTES # (AUTO) 1.3 (1.0-3.2); LYMPHOCYTES % 13.1 % (18.0-39.1); MEAN CORPUSCULAR HGB CONC 28.2 g/dL (31-35); MEAN CORPUSCULAR VOLUME 67.5 fL (81-99); MONOCYTES # (AUTO) 0.9 (0.2-0.8); MONOCYTES % 9.3 % (4.4-11.3); NEUTROPHILS # (AUTO) 7.3 (2.1-6.9); PLATELET COUNT 342 x10e3/uL (140-360); RED BLOOD COUNT 4.31 x10e6/uL (4.3-5.7); RED CELL DISTRIBUTION WIDTH 24.9 % (11.7-14.4)
[2020-10-17] MEDS: SODIUM CHLORIDE 0.9% 1000ML 1,000 ML IV SCH ×3 (06:13→23:04)
[2020-10-17] MEDS: METOCLOPRAMIDE HCL 10 MG/2ML VIAL IV SCH ×3 (06:13→17:34)
[2020-10-17 06:23] LABS: ANION GAP 12.7 mmol/L (8-16); BLOOD UREA NITROGEN 16 mg/dL (7-26); BUN/CREATININE RATIO 15 (6-25); CALCIUM 7.7 mg/dL (8.4-10.2); CARBON DIOXIDE 16 mmol/L (22-29); CHLORIDE 112 mmol/L (98-107); CREATININE, SERUM 1.09 mg/dL (0.72-1.25); EST GLOMERULAR FILTRATION RATE > 60 ML/MIN (60-); GLUCOSE 78 mg/dL (74-118); POTASSIUM 3.7 mmol/L (3.5-5.1); SODIUM 137 mmol/L (136-145)
[2020-10-17] MEDS: PANTOPRAZOLE 40 MG 10ML VIAL IV SCH (10:07)
[2020-10-17] MEDS: CYCLOBENZAPRINE HCL 10 MG TAB PO SCH ×3 (10:07→22:27)
[2020-10-17] MEDS: CYANOCOBALAMIN INJ 1,000 MCG/ML VIAL IM SCH (10:07)
[2020-10-17] MEDS: METOPROLOL TARTRATE 50 MG TAB PO SCH (22:27)
[2020-10-17] MEDS: QUETIAPINE FUMARATE 100 MG TAB PO PRN (22:28)
[2020-10-18] VITALS (8 sets, daily range): BP systolic 145–169; BP diastolic 78–91
[2020-10-18] MEDS: HYDROMORPHONE 1MG/1ML INJ IV PRN ×4 (00:35→22:01)
[2020-10-18] MEDS: LEVOFLOXACIN 500MG/D5W 100ML 100 ML IV SCH (02:00)
[2020-10-18] MEDS: METOPROLOL TARTRATE INJ 1 MG/ML VIAL IV SCH ×3 (02:00→08:56)
[2020-10-18] MEDS: METRONIDAZOLE 500MG/NS 100ML 100 ML IV SCH ×5 (05:59→23:40)
[2020-10-18] MEDS: METOCLOPRAMIDE HCL 10 MG/2ML VIAL IV SCH ×5 (06:00→23:40)
[2020-10-18] MEDS: SODIUM CHLORIDE 0.9% 1000ML 1,000 ML IV SCH ×3 (06:36→22:35)
[2020-10-18] MEDS: PANTOPRAZOLE 40 MG 10ML VIAL IV SCH (08:52)
[2020-10-18] MEDS: CYANOCOBALAMIN INJ 1,000 MCG/ML VIAL IM SCH (08:52)
[2020-10-18] MEDS: CYCLOBENZAPRINE HCL 10 MG TAB PO SCH ×3 (08:53→20:30)
[2020-10-18] MEDS: METOPROLOL TARTRATE 50 MG TAB PO SCH ×2 (08:54→17:25)
[2020-10-18] MEDS: NIFEDIPINE CR 30 MG TAB PO SCH ×2 (08:55→20:31)
[2020-10-18 10:42] LABS: BASOPHILS % 0.3 % (0.0-1.0); EOSINOPHILS # (AUTO) 0.2 (0.0-0.4); EOSINOPHILS % 1.6 % (0.0-6.0); HEMATOCRIT 33.8 % (38.2-49.6); HEMOGLOBIN 9.4 g/dL (14.0-18.0); LYMPHOCYTES # (AUTO) 1.2 (1.0-3.2); LYMPHOCYTES % 10.4 % (18.0-39.1); MEAN CORPUSCULAR HEMOGLOBIN 19.4 pg (28-32); MEAN CORPUSCULAR HGB CONC 27.8 g/dL (31-35); MEAN CORPUSCULAR VOLUME 69.7 fL (81-99); MONOCYTES # (AUTO) 0.7 (0.2-0.8); MONOCYTES % 6.4 % (4.4-11.3); NEUTROPHILS # (AUTO) 8.9 (2.1-6.9); NEUTROPHILS % 79.7 % (38.7-80.0); PLATELET COUNT 293 x10e3/uL (140-360); RED BLOOD COUNT 4.85 x10e6/uL (4.3-5.7); RED CELL DISTRIBUTION WIDTH 26.2 % (11.7-14.4)
[2020-10-18 10:58] LABS: ANION GAP 11.3 mmol/L (8-16); BLOOD UREA NITROGEN 12 mg/dL (7-26); BUN/CREATININE RATIO 11 (6-25); CALCIUM 7.7 mg/dL (8.4-10.2); CARBON DIOXIDE 15 mmol/L (22-29); CHLORIDE 98 mmol/L (98-107); CREATININE, SERUM 1.05 mg/dL (0.72-1.25); EST GLOMERULAR FILTRATION RATE > 60 ML/MIN (60-); GLUCOSE 100 mg/dL (74-118); POTASSIUM 3.3 mmol/L (3.5-5.1); SODIUM 121 mmol/L (136-145)
[2020-10-18] MEDS ORDERED: METOPROLOL TARTRATE INJ 1 MG/ML VIAL IV PRN (14:15)
[2020-10-18] MEDS ORDERED: HYDROCHLOROTH12.5 MG PO (20:33)
[2020-10-18] MEDS ORDERED: LOSARTAN POTASS25 MG PO (20:33)
[2020-10-18] MEDS: QUETIAPINE FUMARATE 100 MG TAB PO PRN (22:03)
[2020-10-19 00:17] VITALS: BP 136/73
[2020-10-19] MEDS: LEVOFLOXACIN 500MG/D5W 100ML 100 ML IV SCH (02:00)
[2020-10-19 04:00] VITALS: BP 136/71
[2020-10-19] MEDS: METRONIDAZOLE 500MG/NS 100ML 100 ML IV SCH ×2 (05:33→12:26)
[2020-10-19] MEDS: METOCLOPRAMIDE HCL 10 MG/2ML VIAL IV SCH ×2 (05:33→12:00)
[2020-10-19 05:38] LABS: BASOPHILS % 0.2 % (0.0-1.0); EOSINOPHILS # (AUTO) 0.2 (0.0-0.4); EOSINOPHILS % 1.6 % (0.0-6.0); HEMOGLOBIN 9.9 g/dL (14.0-18.0); LYMPHOCYTES # (AUTO) 1.2 (1.0-3.2); LYMPHOCYTES % 12.6 % (18.0-39.1); MEAN CORPUSCULAR HEMOGLOBIN 19.9 pg (28-32); MEAN CORPUSCULAR VOLUME 66.3 fL (81-99); MONOCYTES # (AUTO) 0.8 (0.2-0.8); MONOCYTES % 7.6 % (4.4-11.3); NEUTROPHILS # (AUTO) 7.5 (2.1-6.9); NEUTROPHILS % 76.9 % (38.7-80.0); PLATELET COUNT 382 x10e3/uL (140-360); RED BLOOD COUNT 4.98 x10e6/uL (4.3-5.7); RED CELL DISTRIBUTION WIDTH 26.1 % (11.7-14.4)
[2020-10-19 06:17] LABS: ANION GAP 15.2 mmol/L (8-16); BLOOD UREA NITROGEN 9 mg/dL (7-26); BUN/CREATININE RATIO 10 (6-25); CALCIUM 8.1 mg/dL (8.4-10.2); CARBON DIOXIDE 18 mmol/L (22-29); CHLORIDE 106 mmol/L (98-107); CREATININE, SERUM 0.87 mg/dL (0.72-1.25); EST GLOMERULAR FILTRATION RATE > 60 ML/MIN (60-); GLUCOSE 88 mg/dL (74-118); POTASSIUM 3.2 mmol/L (3.5-5.1); SODIUM 136 mmol/L (136-145)
[2020-10-19] MEDS ORDERED: POTASSIUM CHLORIDE 20 MEQ TAB CR PO STA (06:45)
[2020-10-19] MEDS ORDERED: VITAMIN B-121000 MC2 PO (06:49)
[2020-10-19] MEDS ORDERED: LEVOFLOXACIN250 MG PO (06:49)
[2020-10-19] MEDS ORDERED: REGLAN5 MG PO (06:49)
[2020-10-19] MEDS ORDERED: CYCLOBENZAPRINE10 MG PO (06:49)
[2020-10-19] MEDS ORDERED: FLAGYL500 MG PO (06:49)
[2020-10-19] MEDS ORDERED: FERROUS SULFAT325 MG PO (06:51)
[2020-10-19 07:46] VITALS: BP 141/78
[2020-10-19 08:23] VITALS: BP 141/78
[2020-10-19] MEDS: PANTOPRAZOLE 40 MG 10ML VIAL IV SCH (08:32)
[2020-10-19] MEDS: CYANOCOBALAMIN INJ 1,000 MCG/ML VIAL IM SCH (08:33)
[2020-10-19] MEDS: CYCLOBENZAPRINE HCL 10 MG TAB PO SCH (08:35)
[2020-10-19] MEDS: METOPROLOL TARTRATE 50 MG TAB PO SCH (08:36)
[2020-10-19] MEDS: NIFEDIPINE CR 30 MG TAB PO SCH (08:37)
[2020-10-19] MEDS: HYDROMORPHONE 1MG/1ML INJ IV PRN (08:57)
[2020-10-19 11:44] VITALS: BP 133/83
== END 2020-10-19 13:46 | disposition home or self-care (01) | DRG 392 ==
LOC: ER 06:31 → ERHOLD 09:41 → MED/SURG 10:40 → OBSVTOIN 10-11 10:33
PROVIDERS: ADMIT Internal Medicine; ATTEND Internal Medicine
DX: K57.92 Diverticulitis of intestine, part unspecified, without perforation or abscess without bleeding (principal); E87.1 Hypo-osmolality and hyponatremia; N17.9 Acute kidney failure, unspecified; Z68.39 Body mass index [BMI] 39.0-39.9, adult; D50.9 Iron deficiency anemia, unspecified; Z98.1 Arthrodesis status; E66.9 Obesity, unspecified; Z68.31 Body mass index [BMI] 31.0-31.9, adult; E53.8 Deficiency of other specified B group vitamins; Z20.828 Contact with and (suspected) exposure to other viral communicable diseases; I10 Essential (primary) hypertension
CPT/HCPCS: 36415; 71045; 74018; 74019; 74160; 74177; 80048; 80053; 80061; 80307; 81001; 82150; 82550; 82553; 82607; 82728; 82746; 82784; 83036; 83516; 83540; 83605; 83690; 83735; 84100; 84466; 84484; 85025; 85045; 86256; 87040; 99284; G0378; J1170; J1956; J2270; J2405; J2543; J2765; J2916; J3420; J3480; J7030; J7050; Q9967; U0002

== ENCOUNTER 2021-08-18 18:07 | Emergency (ER) | payer SELFPAY ==
[~2021-08-18] VITALS: Ht 170.2 cm; Wt 91.6 kg
[~2021-08-18 18:07] MED LIST changes: +CYCLOBENZAPRINE10 MG PO; +FERROUS SULFAT325 MG PO; +FLAGYL500 MG PO; +HYDROCHLOROTH12.5 MG PO; +LEVOFLOXACIN250 MG PO; +LOSARTAN POTASS25 MG PO; +REGLAN5 MG PO; +VITAMIN B-121000 MC2 PO
[2021-08-18] MEDS ORDERED: SODIUM CHLORIDE 0.9% 1000ML 1,000 ML IV STA (18:26)
[2021-08-18] MEDS ORDERED: METRONIDAZOLE 500MG/NS 100ML 100 ML IV ONE (18:30)
[2021-08-18] MEDS ORDERED: CEFTRIAXONE 1 GM in SODIUM CHLORIDE 0.9% 50ML 50 ML IV ONE (18:30)
[2021-08-18] MEDS ORDERED: KETOROLAC TROMETHAMINE 30 MG/ML VIAL IV NR (18:30)
[2021-08-18] MEDS ORDERED: KETOROLAC TROMETHAMINE 30 MG/ML VIAL ONE (18:46)
[2021-08-18] MEDS ORDERED: SODIUM CHLORIDE 0.9% 1000ML 1,000 ML ONE (18:47)
[2021-08-18] MEDS ORDERED: CEFTRIAXONE 1 GM VIAL ONE (18:47)
[2021-08-18] MEDS ORDERED: SODIUM CHLORIDE 0.9% 50ML 50 ML ONE ×2 (18:47→19:02)
[2021-08-18] MEDS ORDERED: IOPAMIDOL 370 MG/ML 200 ML INFUS..BTL INJ ONE (19:03)
[2021-08-18] MEDS ORDERED: ONDANSETRON HCL INJ 2MG/ML 2ML 2 MG/ML VIAL IV STA (21:18)
[2021-08-18] MEDS ORDERED: FENTANYL CITRATE/PF 100MCG/2 ML INJ ONE (21:27)
[2021-08-18] MEDS ORDERED: ONDANSETRON HCL INJ 2MG/ML 2ML 2 MG/ML VIAL ONE (21:28)
[2021-08-18] MEDS ORDERED: FENTANYL CITRATE/PF 100MCG/2 ML INJ IV ONE (21:30)
[2021-08-18] MEDS ORDERED: ULTRACET TABLE1 EACH PO (22:14)
[2021-08-18] MEDS ORDERED: ONDANSETRON ODT4 MG PO (22:14)
[2021-08-18 22:26] VITALS: BP 132/65
== END 2021-08-18 22:28 | disposition home or self-care (01) ==
LOC: FSED 18:18
DX: R10.32 Left lower quadrant pain (principal); K57.32 Diverticulitis of large intestine without perforation or abscess without bleeding; R19.7 Diarrhea, unspecified; I10 Essential (primary) hypertension; R16.1 Splenomegaly, not elsewhere classified
CPT/HCPCS: 74177; 99284; J0696; J1885; J2405; J3010; J7030; Q9967

== ENCOUNTER → 2022-08-26 | Outpatient (CLI) | payer BC ==
[~2022-08-26] MED LIST changes: +ONDANSETRON ODT4 MG PO
== END ==
LOC: RAD 15:16
PROVIDERS: ATTEND Internal Medicine Gastroenterology
DX: R10.9 Unspecified abdominal pain (principal)
CPT/HCPCS: 74018

== ENCOUNTER → 2022-09-08 | Outpatient (CLI) | payer BC ==
[~2022-09-08] MED LIST changes: +IOPAMIDOL 370 MG/ML 100 ML INFUS..BTL INJ ONE
[2022-09-08 16:54] LABS: CREATININE, SERUM 1.13 mg/dL (0.72-1.25)
== END ==
LOC: CT 15:49
PROVIDERS: ATTEND Internal Medicine Gastroenterology
DX: R19.09 Other intra-abdominal and pelvic swelling, mass and lump (principal)
CPT/HCPCS: 36415; 74177; 82565; 84520; Q9967

== ENCOUNTER 2022-11-04 12:57 | Inpatient (IN) | payer BC ==
[~2022-11-04] VITALS: Ht 170.2 cm; Wt 91.6 kg
[~2022-11-04 12:57] MED LIST changes: -IOPAMIDOL 370 MG/ML 100 ML INFUS..BTL INJ ONE
[2022-11-04 13:52] LABS: BASOPHILS % 0.4 % (0.0-1.0); EOSINOPHILS # (AUTO) 0.1 (0.0-0.4); EOSINOPHILS % 0.5 % (0.0-6.0); HEMATOCRIT 45.5 % (38.2-49.6); HEMOGLOBIN 14.9 g/dL (14.0-18.0); LYMPHOCYTES # (AUTO) 1.4 (1.0-3.2); LYMPHOCYTES % 13.7 % (18.0-39.1); MEAN CORPUSCULAR HEMOGLOBIN 25.9 pg (28-32); MEAN CORPUSCULAR HGB CONC 32.7 g/dL (31-35); MEAN CORPUSCULAR VOLUME 79.1 fL (81-99); MONOCYTES # (AUTO) 0.9 (0.2-0.8); MONOCYTES % 8.6 % (4.4-11.3); NEUTROPHILS # (AUTO) 7.5 (2.1-6.9); NEUTROPHILS % 76.6 % (38.7-80.0); PLATELET COUNT 205 x10e3/uL (140-360); RED BLOOD COUNT 5.75 x10e6/uL (4.3-5.7); RED CELL DISTRIBUTION WIDTH 21.2 % (11.7-14.4)
[2022-11-04 15:22] LABS: ALBUMIN 3.7 g/dL (3.5-5.0); ALBUMIN/GLOBULIN RATIO 0.9 (0.8-2.0); ANION GAP 14.2 mmol/L (8-16); CALCIUM 9.5 mg/dL (8.4-10.2); CREATININE, SERUM 1.14 mg/dL (0.72-1.25); POTASSIUM 4.2 mmol/L (3.5-5.1)
[2022-11-04] MEDS ORDERED: IOPAMIDOL 370 MG/ML 100 ML INFUS..BTL INJ ONE (15:47)
[2022-11-04] MEDS ORDERED: PHENYLEPHRINE HCL 1% 10 MG/ML VIAL ONE (17:51)
[2022-11-04] MEDS ORDERED: SEVOFLURANE INHAL SOLN 250 ML PEN BTL ONE (17:51)
[2022-11-04] MEDS ORDERED: LIDOCAINE HCL 2% LOCAL INJ 5 ML SDV VIAL INJ ONE (17:51)
[2022-11-04] MEDS ORDERED: ONDANSETRON HCL INJ 2MG/ML 2ML 2 MG/ML VIAL ONE (17:51)
[2022-11-04] MEDS ORDERED: DEXAMETHASONE SOD PHOS INJ 4 MG/ML SDV ONE (17:51)
[2022-11-04] MEDS ORDERED: NEOSTIGMINE 1 MG/ML 10ML VIAL ONE (17:51)
[2022-11-04] MEDS ORDERED: ESMOLOL HCL 100MG/10ML 10 MG/ML VIAL ONE (17:51)
[2022-11-04] MEDS ORDERED: GLYCOPYRROLATE INJ 0.2 MG/ML VIAL ONE (17:51)
[2022-11-04] MEDS ORDERED: POVIDONE IODINE 0.05% 0.05 % ML PO ONE (17:51)
[2022-11-04] MEDS ORDERED: METOCLOPRAMIDE HCL 10 MG/2ML VIAL ONE (17:51)
[2022-11-04] MEDS ORDERED: FAMOTIDINE 20 MG/2 ML VIAL IV ONE (17:51)
[2022-11-04] MEDS ORDERED: PROPOFOL IV EMULSION 10 MG/ML 20 ML VIAL ONE (17:51)
[2022-11-04] MEDS ORDERED: EPINEPHRINE HCL 1:1000 1ML 1 MG/ML AMP ONE (17:51)
[2022-11-04] MEDS ORDERED: ROCURONIUM BROMIDE 10 MG/ML 5ML VIAL IV ONE (17:51)
[2022-11-04] MEDS ORDERED: Morphine 4mg INJECTION 4 MG/ML INJ IV PRN (18:30)
[2022-11-04 18:57] LABS: CLARITY,URINE SL CLOUDY (CLEAR); COLOR,URINE YELLOW (YELLOW); LEUKOCYTE ESTERASE ,URINE NEGATIVE (NEGATIVE); NITRITE,URINE NEGATIVE (NEGATIVE)
[2022-11-04 18:58] LABS: KETONES,URINE 1+ (NEGATIVE); PROTEIN,URINE DIPSTICK 1+ (NEGATIVE); URINE UROBILINOGEN 0.2 mg/dL (0.2 - 1)
[2022-11-04 19:07] LABS: BACTERIA,URINE FEW /HPF; EPITHELIAL CELLS,URINE FEW /LPF; RBC,URINE 0-5 /HPF (0-5); WBC,URINE (MAN) 0-5 /HPF (0-5)
[2022-11-04] MEDS ORDERED: ACETAMINOPHEN 325 MG TAB PO PRN (20:30)
[2022-11-04] MEDS ORDERED: QUETIAPINE FUMARATE 100 MG TAB PO STA (20:37)
[2022-11-04] MEDS: SODIUM CHLORIDE 0.9% 1000ML 1,000 ML IV SCH (20:38)
[2022-11-04] MEDS ORDERED: QUETIAPINE FUMARATE 100 MG TAB PO PRN (20:45)
[2022-11-04] MEDS ORDERED: HYDROCHLOROTHIAZIDE 25 MG TAB PO SCH (21:00)
[2022-11-04] MEDS ORDERED: METOPROLOL SUCCINATE 50 MG TAB XL PO SCH (21:00)
[2022-11-04] MEDS ORDERED: MELATONIN 5 MG TABLET PO PRN (21:15)
[2022-11-04] MEDS: HYDROCODONE/APAP 5MG-325MG TAB PO PRN (21:23)
[2022-11-04] MEDS: CEFEPIME 2 GM in SODIUM CHLORIDE 0.9% 100 ML IV SCH (21:37)
[2022-11-04 21:40] VITALS: BP 143/92
[2022-11-04 21:42] VITALS: BP 143/92
[2022-11-04 21:43] VITALS: BP 143/92
[2022-11-04 21:48] VITALS: BP 143/92
[2022-11-04] MEDS ORDERED: METRONIDAZOLE 500MG/NS 100ML 100 ML IV SCH (22:00)
[2022-11-04] MEDS: QUETIAPINE FUMARATE 100 MG TAB PO PRN (22:08)
[2022-11-04] MEDS ORDERED: HYDRALAZINE HCL 20 MG/ML VIAL IV PRN (23:15)
[2022-11-04] MEDS ORDERED: HYDROCODONE/APAP 10MG-325MG TAB PO PRN (23:30)
[2022-11-05] MEDS: HYDROCHLOROTHIAZIDE 25 MG TAB PO SCH ×3 (00:25→20:26)
[2022-11-05] MEDS: METRONIDAZOLE 500MG/NS 100ML 100 ML IV SCH ×4 (00:25→17:21)
[2022-11-05 00:54] VITALS: BP 144/87
[2022-11-05] MEDS: Morphine 4mg INJECTION 4 MG/ML INJ IV PRN ×2 (01:51→07:49)
[2022-11-05] MEDS: ONDANSETRON HCL INJ 2MG/ML 2ML 2 MG/ML VIAL IV PRN ×3 (01:51→11:48)
[2022-11-05] MEDS: CEFEPIME 2 GM in SODIUM CHLORIDE 0.9% 100 ML IV SCH ×3 (04:52→20:25)
[2022-11-05] MEDS: SODIUM CHLORIDE 0.9% 1000ML 1,000 ML IV SCH ×3 (04:54→18:30)
[2022-11-05 04:57] LABS: BASOPHILS % 0.3 % (0.0-1.0); EOSINOPHILS # (AUTO) 0.1 (0.0-0.4); EOSINOPHILS % 1.5 % (0.0-6.0); HEMATOCRIT 38.6 % (38.2-49.6); HEMOGLOBIN 12.8 g/dL (14.0-18.0); LYMPHOCYTES # (AUTO) 1.5 (1.0-3.2); LYMPHOCYTES % 21.3 % (18.0-39.1); MEAN CORPUSCULAR HEMOGLOBIN 26.2 pg (28-32); MEAN CORPUSCULAR HGB CONC 33.2 g/dL (31-35); MEAN CORPUSCULAR VOLUME 79.1 fL (81-99); MONOCYTES # (AUTO) 0.7 (0.2-0.8); NEUTROPHILS # (AUTO) 4.7 (2.1-6.9); NEUTROPHILS % 66.6 % (38.7-80.0); PLATELET COUNT 186 x10e3/uL (140-360); RED BLOOD COUNT 4.88 x10e6/uL (4.3-5.7); RED CELL DISTRIBUTION WIDTH 19.9 % (11.7-14.4)
[2022-11-05 05:16] LABS: ANION GAP 15.7 mmol/L (8-16); CALCIUM 8.9 mg/dL (8.4-10.2); CREATININE, SERUM 0.91 mg/dL (0.72-1.25); POTASSIUM 3.7 mmol/L (3.5-5.1)
[2022-11-05 05:47] VITALS: BP 117/74
[2022-11-05] MEDS: LOSARTAN POTASSIUM 25 MG TAB PO SCH (08:21)
[2022-11-05 08:24] VITALS: BP 106/70
[2022-11-05] MEDS ORDERED: METOPROLOL SUCCINATE 50 MG TAB XL PO SCH ×2 (09:00)
[2022-11-05] MEDS ORDERED: HYDROMORPHONE 1MG/1ML INJ IV PRN (11:15)
[2022-11-05 11:58] VITALS: BP 124/76
[2022-11-05] MEDS: HYDROMORPHONE 1MG/1ML INJ IV PRN ×2 (16:35→20:45)
[2022-11-05 17:22] VITALS: BP 130/75
[2022-11-05 20:00] VITALS: BP 124/74
[2022-11-05] MEDS: METOPROLOL SUCCINATE 50 MG TAB XL PO SCH (20:26)
[2022-11-05] MEDS: MAGNESIUM HYDROXIDE 30 ML UDC PO SCH (22:09)
[2022-11-05] MEDS: QUETIAPINE FUMARATE 100 MG TAB PO PRN (22:42)
[2022-11-06] VITALS (10 sets, daily range): BP systolic 102–139; BP diastolic 60–78
[2022-11-06 05:25] LABS: BASOPHILS % 0.2 % (0.0-1.0); EOSINOPHILS # (AUTO) 0.2 (0.0-0.4); EOSINOPHILS % 2.8 % (0.0-6.0); HEMATOCRIT 42.9 % (38.2-49.6); HEMOGLOBIN 13.3 g/dL (14.0-18.0); LYMPHOCYTES # (AUTO) 1.1 (1.0-3.2); MEAN CORPUSCULAR HEMOGLOBIN 26.1 pg (28-32); MEAN CORPUSCULAR VOLUME 84.1 fL (81-99); MONOCYTES # (AUTO) 0.6 (0.2-0.8); MONOCYTES % 10.4 % (4.4-11.3); NEUTROPHILS # (AUTO) 3.5 (2.1-6.9); NEUTROPHILS % 66.2 % (38.7-80.0); PLATELET COUNT 192 x10e3/uL (140-360); RED CELL DISTRIBUTION WIDTH 19.3 % (11.7-14.4)
[2022-11-06 05:47] LABS: ANION GAP 18.5 mmol/L (8-16); CALCIUM 8.8 mg/dL (8.4-10.2); CREATININE, SERUM 1.05 mg/dL (0.72-1.25); POTASSIUM 3.5 mmol/L (3.5-5.1)
[2022-11-06] MEDS: CEFEPIME 2 GM in SODIUM CHLORIDE 0.9% 100 ML IV SCH ×3 (06:41→21:25)
[2022-11-06] MEDS: METRONIDAZOLE 500MG/NS 100ML 100 ML IV SCH ×4 (06:42→20:18)
[2022-11-06] MEDS: SODIUM CHLORIDE 0.9% 1000ML 1,000 ML IV SCH ×3 (06:42→19:14)
[2022-11-06] MEDS: LOSARTAN POTASSIUM 25 MG TAB PO SCH (09:00)
[2022-11-06] MEDS ORDERED: DOCUSATE SODIUM 100 MG CAP PO SCH (09:00)
[2022-11-06] MEDS: ONDANSETRON HCL INJ 2MG/ML 2ML 2 MG/ML VIAL IV PRN ×3 (09:04→18:02)
[2022-11-06] MEDS: SENNOSIDES 8.6 MG TAB PO SCH (09:04)
[2022-11-06] MEDS: HYDROMORPHONE 1MG/1ML INJ IV PRN ×4 (09:05→22:39)
[2022-11-06] MEDS ORDERED: ENOXAPARIN SOD INJ 40 MG/0.4 ML SYR SC ONE (09:30)
[2022-11-06] MEDS: HYDROCODONE/APAP 5MG-325MG TAB PO PRN ×2 (12:04→21:10)
[2022-11-06] MEDS: MAGNESIUM HYDROXIDE 30 ML UDC PO SCH (19:56)
[2022-11-06] MEDS ORDERED: HYDROCHLOROTHIA25 MG PO (20:22)
[2022-11-06] MEDS: METOPROLOL SUCCINATE 50 MG TAB XL PO SCH (21:11)
[2022-11-06] MEDS: HYDROCHLOROTHIAZIDE 25 MG TAB PO SCH (21:11)
[2022-11-06] MEDS: QUETIAPINE FUMARATE 100 MG TAB PO PRN (22:33)
[2022-11-07] VITALS (8 sets, daily range): BP systolic 103–144; BP diastolic 68–83
[2022-11-07] MEDS: METRONIDAZOLE 500MG/NS 100ML 100 ML IV SCH ×4 (01:36→19:44)
[2022-11-07] MEDS: SODIUM CHLORIDE 0.9% 1000ML 1,000 ML IV SCH ×3 (01:38→16:54)
[2022-11-07] MEDS: CEFEPIME 2 GM in SODIUM CHLORIDE 0.9% 100 ML IV SCH ×3 (05:16→22:00)
[2022-11-07 05:45] LABS: BASOPHILS % 0.4 % (0.0-1.0); EOSINOPHILS # (AUTO) 0.2 (0.0-0.4); EOSINOPHILS % 3.2 % (0.0-6.0); HEMATOCRIT 43.3 % (38.2-49.6); HEMOGLOBIN 13.2 g/dL (14.0-18.0); LYMPHOCYTES # (AUTO) 1.4 (1.0-3.2); LYMPHOCYTES % 29.3 % (18.0-39.1); MEAN CORPUSCULAR HEMOGLOBIN 25.6 pg (28-32); MEAN CORPUSCULAR HGB CONC 30.5 g/dL (31-35); MEAN CORPUSCULAR VOLUME 83.9 fL (81-99); MONOCYTES # (AUTO) 0.5 (0.2-0.8); MONOCYTES % 10.3 % (4.4-11.3); NEUTROPHILS # (AUTO) 2.6 (2.1-6.9); NEUTROPHILS % 56.6 % (38.7-80.0); PLATELET COUNT 226 x10e3/uL (140-360); RED BLOOD COUNT 5.16 x10e6/uL (4.3-5.7); RED CELL DISTRIBUTION WIDTH 18.6 % (11.7-14.4)
[2022-11-07 06:14] LABS: ANION GAP 16.7 mmol/L (8-16); CALCIUM 8.9 mg/dL (8.4-10.2); CREATININE, SERUM 1.03 mg/dL (0.72-1.25); POTASSIUM 3.7 mmol/L (3.5-5.1)
[2022-11-07] MEDS: LOSARTAN POTASSIUM 25 MG TAB PO SCH (09:13)
[2022-11-07] MEDS: SENNOSIDES 8.6 MG TAB PO SCH (09:14)
[2022-11-07] MEDS: MAGNESIUM HYDROXIDE 30 ML UDC PO SCH ×2 (11:21→20:53)
[2022-11-07] MEDS ORDERED: ENOXAPARIN SOD INJ 40 MG/0.4 ML SYR SC SCH (17:00)
[2022-11-07] MEDS ORDERED: ERYTHROMYCIN 250 MG TAB PO SCH (19:00)
[2022-11-07] MEDS ORDERED: ERYTHROMYCIN 500 MG TAB PO SCH (19:00)
[2022-11-07] MEDS: ERYTHROMYCIN 250 MG TAB PO SCH ×3 (19:43→23:47)
[2022-11-07] MEDS: ONDANSETRON HCL INJ 2MG/ML 2ML 2 MG/ML VIAL IV PRN ×2 (19:43→23:52)
[2022-11-07] MEDS: NEOMYCIN SULFATE 500 MG TAB PO SCH ×3 (19:43→23:47)
[2022-11-07] MEDS: HYDROMORPHONE 1MG/1ML INJ IV PRN (19:50)
[2022-11-07] MEDS: HYDROCHLOROTHIAZIDE 25 MG TAB PO SCH (20:54)
[2022-11-07] MEDS: METOPROLOL SUCCINATE 50 MG TAB XL PO SCH (20:54)
[2022-11-08] VITALS: BP 106/63
[2022-11-08] MEDS: METRONIDAZOLE 500MG/NS 100ML 100 ML IV SCH ×4 (02:03→20:43)
[2022-11-08] MEDS: SODIUM CHLORIDE 0.9% 1000ML 1,000 ML IV SCH ×3 (02:03→21:35)
[2022-11-08 04:00] VITALS: BP 137/79
[2022-11-08] MEDS: ONDANSETRON HCL INJ 2MG/ML 2ML 2 MG/ML VIAL IV PRN (04:16)
[2022-11-08] MEDS: HYDROMORPHONE 1MG/1ML INJ IV PRN (04:17)
[2022-11-08 05:30] LABS: BASOPHILS % 0.5 % (0.0-1.0); EOSINOPHILS # (AUTO) 0.1 (0.0-0.4); EOSINOPHILS % 3.5 % (0.0-6.0); HEMOGLOBIN 13.8 g/dL (14.0-18.0); LYMPHOCYTES # (AUTO) 1.3 (1.0-3.2); LYMPHOCYTES % 33.6 % (18.0-39.1); MEAN CORPUSCULAR HEMOGLOBIN 26.4 pg (28-32); MEAN CORPUSCULAR HGB CONC 31.4 g/dL (31-35); MEAN CORPUSCULAR VOLUME 84.1 fL (81-99); MONOCYTES # (AUTO) 0.4 (0.2-0.8); MONOCYTES % 10.8 % (4.4-11.3); NEUTROPHILS # (AUTO) 2.1 (2.1-6.9); NEUTROPHILS % 51.3 % (38.7-80.0); PLATELET COUNT 221 x10e3/uL (140-360); RED BLOOD COUNT 5.23 x10e6/uL (4.3-5.7); RED CELL DISTRIBUTION WIDTH 18.8 % (11.7-14.4)
[2022-11-08 05:46] LABS: ANION GAP 18.1 mmol/L (8-16); CALCIUM 9.2 mg/dL (8.4-10.2); CREATININE, SERUM 1.07 mg/dL (0.72-1.25); POTASSIUM 3.1 mmol/L (3.5-5.1)
[2022-11-08] MEDS: CEFEPIME 2 GM in SODIUM CHLORIDE 0.9% 100 ML IV SCH ×3 (06:12→22:00)
[2022-11-08 07:39] VITALS: BP 137/79
[2022-11-08 08:00] VITALS: BP 123/69
[2022-11-08] MEDS: SENNOSIDES 8.6 MG TAB PO SCH (09:00)
[2022-11-08] MEDS: POTASSIUM CHLORIDE 20MEQ/100ML 100 ML IV SCH ×3 (09:20→16:59)
[2022-11-08] MEDS ORDERED: PROMETHAZINE 12.5MG/ NACL 0.9% 12.5 MG/50 ML BAG IV ONE (10:00)
[2022-11-08] MEDS ORDERED: CEFEPIME HCL 1 GM VIAL ONE (12:54)
[2022-11-08] MEDS ORDERED: SODIUM CHLORIDE 0.9% 100 ML ONE (12:56)
[2022-11-08] MEDS ORDERED: ROPIVACAINE 246.25 MG, EPINEPHRINE HCL 1:1000 1ML 0.5 MG, CLONIDINE HCL 0.08 MG, KETORO... INJ ONE ×5 (15:15)
[2022-11-08] MEDS ORDERED: NALOXONE HCL INJ 0.4 MG/ML AMP IV PRN (15:45)
[2022-11-08] MEDS ORDERED: FENTANYL CITRATE/PF 100MCG/2 ML INJ ONE (16:13)
[2022-11-08] MEDS ORDERED: HYDROMORPHONE 0.2MG/ML-SOD CHL 30ML PCA SYRINGE IV ONE (16:16)
[2022-11-08] MEDS: KETOROLAC TROMETHAMINE 30 MG/ML VIAL IV PRN (16:50)
[2022-11-08 17:00] VITALS: BP 132/74
[2022-11-08] MEDS: SODIUM CHLORIDE 0.9% 250ML IRRIG IR SCH ×3 (18:30→23:40)
[2022-11-08 20:00] VITALS: BP 120/81
[2022-11-08] MEDS: METOPROLOL SUCCINATE 50 MG TAB XL PO SCH (20:43)
[2022-11-08] MEDS: HYDROMORPHONE 0.2MG/ML-SOD CHL 30ML PCA SYRINGE IV PRN (21:36)
[2022-11-09] VITALS (8 sets, daily range): BP systolic 111–138; BP diastolic 69–82
[2022-11-09] MEDS: SODIUM CHLORIDE 0.9% 1000ML 1,000 ML IV SCH ×3 (02:30→22:57)
[2022-11-09] MEDS: METRONIDAZOLE 500MG/NS 100ML 100 ML IV SCH ×4 (03:11→20:09)
[2022-11-09] MEDS: HYDROMORPHONE 0.2MG/ML-SOD CHL 30ML PCA SYRINGE IV PRN ×4 (03:19→23:19)
[2022-11-09] MEDS: SODIUM CHLORIDE 0.9% 250ML IRRIG IR SCH ×6 (03:20→23:51)
[2022-11-09 05:38] LABS: BASOPHILS % 0.1 % (0.0-1.0); HEMATOCRIT 37.6 % (38.2-49.6); HEMOGLOBIN 11.7 g/dL (14.0-18.0); LYMPHOCYTES # (AUTO) 0.7 (1.0-3.2); LYMPHOCYTES % 5.5 % (18.0-39.1); MEAN CORPUSCULAR HEMOGLOBIN 26.2 pg (28-32); MEAN CORPUSCULAR HGB CONC 31.1 g/dL (31-35); MEAN CORPUSCULAR VOLUME 84.3 fL (81-99); MONOCYTES # (AUTO) 1.2 (0.2-0.8); MONOCYTES % 9.5 % (4.4-11.3); NEUTROPHILS # (AUTO) 10.9 (2.1-6.9); NEUTROPHILS % 84.4 % (38.7-80.0); PLATELET COUNT 251 x10e3/uL (140-360); RED BLOOD COUNT 4.46 x10e6/uL (4.3-5.7); RED CELL DISTRIBUTION WIDTH 18.6 % (11.7-14.4)
[2022-11-09 05:57] LABS: ANION GAP 14.5 mmol/L (8-16); CALCIUM 8.5 mg/dL (8.4-10.2); CREATININE, SERUM 1.14 mg/dL (0.72-1.25); POTASSIUM 4.5 mmol/L (3.5-5.1)
[2022-11-09] MEDS: CEFEPIME 2 GM in SODIUM CHLORIDE 0.9% 100 ML IV SCH ×3 (06:05→22:57)
[2022-11-09] MEDS: KETOROLAC TROMETHAMINE 30 MG/ML VIAL IV PRN ×2 (15:41→23:11)
[2022-11-09] MEDS: METOPROLOL SUCCINATE 50 MG TAB XL PO SCH (22:57)
[2022-11-10] VITALS (8 sets, daily range): BP systolic 144–163; BP diastolic 73–96
[2022-11-10] MEDS: METRONIDAZOLE 500MG/NS 100ML 100 ML IV SCH ×4 (01:57→20:27)
[2022-11-10] MEDS: SODIUM CHLORIDE 0.9% 250ML IRRIG IR SCH ×2 (03:35→08:50)
[2022-11-10] MEDS: CEFEPIME 2 GM in SODIUM CHLORIDE 0.9% 100 ML IV SCH ×3 (06:08→22:22)
[2022-11-10] MEDS: KETOROLAC TROMETHAMINE 30 MG/ML VIAL IV PRN ×2 (08:44→18:08)
[2022-11-10] MEDS: SODIUM CHLORIDE 0.9% 1000ML 1,000 ML IV SCH ×3 (08:53→18:09)
[2022-11-10] MEDS ORDERED: BISACODYL 10 MG SUPP PR NR (09:15)
[2022-11-10 09:30] LABS: BASOPHILS % 0.3 % (0.0-1.0); EOSINOPHILS # (AUTO) 0.1 (0.0-0.4); EOSINOPHILS % 0.9 % (0.0-6.0); LYMPHOCYTES % 13.3 % (18.0-39.1); MEAN CORPUSCULAR HEMOGLOBIN 26.2 pg (28-32); MEAN CORPUSCULAR HGB CONC 30.6 g/dL (31-35); MEAN CORPUSCULAR VOLUME 85.7 fL (81-99); MONOCYTES # (AUTO) 0.8 (0.2-0.8); MONOCYTES % 10.6 % (4.4-11.3); NEUTROPHILS # (AUTO) 5.8 (2.1-6.9); NEUTROPHILS % 74.6 % (38.7-80.0); PLATELET COUNT 202 x10e3/uL (140-360); RED CELL DISTRIBUTION WIDTH 19.3 % (11.7-14.4)
[2022-11-10 09:47] LABS: ANION GAP 14.6 mmol/L (8-16); CALCIUM 8.3 mg/dL (8.4-10.2); CREATININE, SERUM 0.89 mg/dL (0.72-1.25); POTASSIUM 3.6 mmol/L (3.5-5.1)
[2022-11-10] MEDS ORDERED: LORAZEPAM INJ 2 MG/ML VIAL IV ONE (10:00)
[2022-11-10] MEDS ORDERED: HYDROMORPHONE 0.2MG/ML-SOD CHL 30ML PCA SYRINGE IV PRN (10:30)
[2022-11-10] MEDS: METOPROLOL SUCCINATE 50 MG TAB XL PO SCH (20:27)
[2022-11-10] MEDS: BISACODYL 10 MG SUPP PR SCH (20:27)
[2022-11-11] VITALS (7 sets, daily range): BP systolic 134–151; BP diastolic 64–85
[2022-11-11] MEDS: ONDANSETRON HCL INJ 2MG/ML 2ML 2 MG/ML VIAL IV PRN ×6 (00:02→20:10)
[2022-11-11] MEDS: KETOROLAC TROMETHAMINE 30 MG/ML VIAL IV PRN ×3 (00:09→22:40)
[2022-11-11] MEDS: METRONIDAZOLE 500MG/NS 100ML 100 ML IV SCH ×3 (02:00→14:15)
[2022-11-11] MEDS: SODIUM CHLORIDE 0.9% 1000ML 1,000 ML IV SCH (04:50)
[2022-11-11 04:59] LABS: BASOPHILS % 0.4 % (0.0-1.0); EOSINOPHILS # (AUTO) 0.1 (0.0-0.4); HEMATOCRIT 34.3 % (38.2-49.6); HEMOGLOBIN 10.3 g/dL (14.0-18.0); LYMPHOCYTES % 18.6 % (18.0-39.1); MEAN CORPUSCULAR VOLUME 86.6 fL (81-99); MONOCYTES # (AUTO) 0.6 (0.2-0.8); MONOCYTES % 10.9 % (4.4-11.3); NEUTROPHILS # (AUTO) 3.8 (2.1-6.9); NEUTROPHILS % 67.7 % (38.7-80.0); PLATELET COUNT 206 x10e3/uL (140-360); RED BLOOD COUNT 3.96 x10e6/uL (4.3-5.7); RED CELL DISTRIBUTION WIDTH 19.1 % (11.7-14.4)
[2022-11-11] MEDS: CEFEPIME 2 GM in SODIUM CHLORIDE 0.9% 100 ML IV SCH ×3 (04:59→21:41)
[2022-11-11 05:24] LABS: ANION GAP 15.6 mmol/L (8-16); CALCIUM 8.3 mg/dL (8.4-10.2); CREATININE, SERUM 0.82 mg/dL (0.72-1.25); POTASSIUM 3.6 mmol/L (3.5-5.1)
[2022-11-11] MEDS: BISACODYL 10 MG SUPP PR SCH (08:00)
[2022-11-11] MEDS ORDERED: QUETIAPINE FUMARATE 100 MG TAB PO PRN (10:30)
[2022-11-11] MEDS: HYDROCODONE/APAP 7.5MG-325MG 1 EA TAB PO PRN (13:20)
[2022-11-11] MEDS: HYDROMORPHONE 1MG/1ML INJ IV PRN (20:10)
[2022-11-11] MEDS ORDERED: METOPROLOL SUCCINATE 50 MG TAB XL PO SCH (22:30)
[2022-11-11] MEDS ORDERED: HYDROCHLOROTHIAZIDE 25 MG TAB PO SCH (22:30)
[2022-11-12] VITALS: BP 150/74
[2022-11-12] MEDS ORDERED: PANTOPRAZOLE SOD 40 MG TABEC PO ONE (00:30)
[2022-11-12] MEDS: ONDANSETRON HCL INJ 2MG/ML 2ML 2 MG/ML VIAL IV PRN (03:33)
[2022-11-12] MEDS: HYDROMORPHONE 1MG/1ML INJ IV PRN (03:34)
[2022-11-12 04:00] VITALS: BP 123/63
[2022-11-12] MEDS: KETOROLAC TROMETHAMINE 30 MG/ML VIAL IV PRN ×2 (06:37→13:29)
[2022-11-12] MEDS: CEFEPIME 2 GM in SODIUM CHLORIDE 0.9% 100 ML IV SCH ×2 (06:37→13:30)
[2022-11-12 07:07] LABS: BASOPHILS % 0.2 % (0.0-1.0); EOSINOPHILS # (AUTO) 0.2 (0.0-0.4); EOSINOPHILS % 2.9 % (0.0-6.0); HEMATOCRIT 35.3 % (38.2-49.6); HEMOGLOBIN 10.9 g/dL (14.0-18.0); LYMPHOCYTES # (AUTO) 1.4 (1.0-3.2); LYMPHOCYTES % 25.3 % (18.0-39.1); MEAN CORPUSCULAR HEMOGLOBIN 26.3 pg (28-32); MEAN CORPUSCULAR HGB CONC 30.9 g/dL (31-35); MEAN CORPUSCULAR VOLUME 85.3 fL (81-99); MONOCYTES # (AUTO) 0.6 (0.2-0.8); MONOCYTES % 10.2 % (4.4-11.3); NEUTROPHILS # (AUTO) 3.4 (2.1-6.9); NEUTROPHILS % 60.9 % (38.7-80.0); PLATELET COUNT 215 x10e3/uL (140-360); RED BLOOD COUNT 4.14 x10e6/uL (4.3-5.7); RED CELL DISTRIBUTION WIDTH 18.6 % (11.7-14.4)
[2022-11-12] MEDS ORDERED: PANTOPRAZOLE SOD 40 MG TABEC PO SCH (07:30)
[2022-11-12 07:36] LABS: ANION GAP 17.4 mmol/L (8-16); CALCIUM 8.5 mg/dL (8.4-10.2); CREATININE, SERUM 0.86 mg/dL (0.72-1.25); POTASSIUM 3.4 mmol/L (3.5-5.1)
[2022-11-12 08:21] VITALS: BP 131/76
[2022-11-12 08:54] VITALS: BP 131/76
[2022-11-12] MEDS ORDERED: METOPROLOL SUCCINATE 50 MG TAB XL PO SCH (09:00)
[2022-11-12] MEDS ORDERED: ENOXAPARIN SOD INJ 40 MG/0.4 ML SYR SC SCH (09:00)
[2022-11-12] MEDS ORDERED: HYDROCHLOROTHIAZIDE 25 MG TAB PO SCH (09:00)
[2022-11-12] MEDS ORDERED: SENNA-S TABLET PO SCH (09:00)
[2022-11-12] MEDS: HYDROCODONE/APAP 7.5MG-325MG 1 EA TAB PO PRN ×2 (09:18→15:16)
[2022-11-12 12:41] VITALS: BP 145/86
[2022-11-12] MEDS ORDERED: KETOROLAC TROME10 MG PO (14:16)
[2022-11-12 16:40] VITALS: BP 153/80
== END 2022-11-12 17:25 | disposition home or self-care (01) | DRG 330 ==
LOC: ER 13:01 → ERHOLD 18:19 → MED/SURG 21:25
PROVIDERS: ADMIT Family Medicine Adult Medicine; ATTEND Family Medicine Adult Medicine
PROC: 0WQF0ZZ Repair Abdominal Wall, Open Approach (ICD-10-PCS; 2022-11-08)
PROC: 0DTN0ZZ Resection of Sigmoid Colon, Open Approach (ICD-10-PCS; principal; 2022-11-08 12:01)
DX: K57.32 Diverticulitis of large intestine without perforation or abscess without bleeding (principal); K62.5 Hemorrhage of anus and rectum; I10 Essential (primary) hypertension; K42.9 Umbilical hernia without obstruction or gangrene; F41.9 Anxiety disorder, unspecified; E66.9 Obesity, unspecified; F10.10 Alcohol abuse, uncomplicated; F17.210 Nicotine dependence, cigarettes, uncomplicated; L08.9 Local infection of the skin and subcutaneous tissue, unspecified; Z98.890 Other specified postprocedural states; Z88.1 Allergy status to other antibiotic agents; Z88.5 Allergy status to narcotic agent; Z68.31 Body mass index [BMI] 31.0-31.9, adult; Z98.1 Arthrodesis status; Z79.891 Long term (current) use of opiate analgesic; Z79.899 Other long term (current) drug therapy; Z87.19 Personal history of other diseases of the digestive system
CPT/HCPCS: 36415; 74177; 80048; 80053; 81001; 83690; 85025; 88305; 88307; 93005; 94799; 96360; 96361; 99252; 99284; J0171; J0692; J1100; J1170; J1650; J1885; J2001; J2060; J2270; J2370; J2405; J2550; J2710; J2765; J2795; J3010; J3480; J7030; J7050; Q9967

== ENCOUNTER → 2023-01-26 | Day surgery (SDC) | payer BC ==
[~2023-01-26] MED LIST changes: +ASPIRIN81 MG PO; +FENTANYL CITRATE/PF 100MCG/2 ML INJ ONE; +HYDROCHLOROTHIA25 MG PO; +HYOSCYAMINE SULFATE 0.5 MG/ML INJ ONE; +KETOROLAC TROME10 MG PO; +LACTATED RINGER'S 1,000 ML ONE; +METOCLOPRAMIDE HCL 10 MG/2ML VIAL ONE; +MIDAZOLAM HCL 2 MG/2 ML VIAL ONE; +ONDANSETRON HCL INJ 2MG/ML 2ML 2 MG/ML VIAL ONE; +POVIDONE IODINE 0.05% 0.05 % ML PO ONE; +PROPOFOL IV EMULSION 10 MG/ML 20 ML VIAL ONE
[2023-01-26 11:30] VITALS: BP 133/82
== END | disposition home or self-care (01) ==
LOC: OR 08:20
PROVIDERS: ATTEND Internal Medicine Gastroenterology
DX: Z09 Encounter for follow-up examination after completed treatment for conditions other than malignant neoplasm (principal); Z86.010 Personal history of colon polyps; K63.89 Other specified diseases of intestine; K57.30 Diverticulosis of large intestine without perforation or abscess without bleeding; Z98.0 Intestinal bypass and anastomosis status; K64.8 Other hemorrhoids; I10 Essential (primary) hypertension; M19.90 Unspecified osteoarthritis, unspecified site; G47.00 Insomnia, unspecified; F17.200 Nicotine dependence, unspecified, uncomplicated; Z88.0 Allergy status to penicillin; Z79.82 Long term (current) use of aspirin; Z79.899 Other long term (current) drug therapy
CPT/HCPCS: 45380; J1980; J2250; J2405; J2704; J2765; J3010; J7121; 45378